=== PATIENT | male | born 1970 | race Caucasian/White ===

== ENCOUNTER 2016-12-14 06:47 | Inpatient (IN) | payer BC, OTHER ==
[~2016-12-14] VITALS: Ht 185.4 cm; Wt 85.2 kg
[~2016-12-14 06:47] MED LIST: PARO1TAB27 PO
[2016-12-14] MEDS ORDERED: DiphenhydrAMINE HCL 50 MG/ML VIAL IV STA (07:46)
[2016-12-14] MEDS ORDERED: FAMOTIDINE 20MG/102 ML D5W IV STA (07:46)
[2016-12-14] MEDS ORDERED: METHYLPREDNISOLONE 125 MG VIAL IV STA (07:46)
[2016-12-14 08:06] LABS: BASO % 0.1 %; BASO ABS # 0.01 K/uL (0-0.2); COMPLETE YES; EOS % 1.4 %; HEMATOCRIT 46.3 % (42-52); IG% 0.1 %; LYMPH % 17.6 %; LYMPH ABS # 1.68 K/uL (1.2-3.4); MEAN CELL VOLUME 87.7 fL (80-100); MEAN CORPUSCULAR HEMOGLOBIN 29.4 pg (25-34); MEAN CORPUSCULAR HGB CONC 33.5 g/dl (32-36); MONO % 3.2 %; NEUT % 77.6 %; PLATELET COUNT 145 K/uL (130-400); RED BLOOD COUNT 5.28 M/uL (4.7-6.1); WHITE BLOOD COUNT 9.54 K/uL (4.8-10.8)
[2016-12-14 08:35] LABS: BUN/CREATININE RATIO 13.6 (10-20); CREATININE 1.1 mg/dl (0.60-1.40); POTASSIUM 3.1 mmol/L (3.5-5.1)
[2016-12-14 08:36] LABS: URINE APPEARANCE CLEAR (CLEAR); URINE BILIRUBIN NEG (NEG); URINE COLOR YELLOW; URINE NITRITE NEG (NEG); URINE SPECIFIC GRAVITY 1.014 (1.000-1.030); UROBILINOGEN NEG (NEG)
[2016-12-14 08:40] LABS: CALCIUM 8.1 mg/dl (8.5-10.1)
[2016-12-14 08:42] LABS: MANUAL MICROSCOPIC REQUIRED? NO; REVIEW REQ? YES
[2016-12-14 08:46] LABS: THYROID STIMULATING HORMONE 7.13 uIu/ml (0.300-4.500)
--- NOTE | 2016-12-14 08:54 | DIAGNOSTIC IMAGING REPORT ---
CHEST ONE VIEW PORTABLE HISTORY: hypoxia COMPARISON: Chest 08/07/2009. Chest CT 02/05/2016. FINDINGS: Emphysema. No pleural effusions. No pneumothorax. The heart is normal in size. Mild diffuse interstitial thickening which is slightly progressed. Small scarlike density within the right medial lung base. IMPRESSION: 1. Emphysema. 2. Mild diffuse interstitial thickening which has slightly progressed but favors chronic change. No new focal lung consolidations. Electronically signed by: Sae Stratton M.D. 12/14/2016 8:53 AM Dictated Date/Time: 12/14/2016 8:51 AM
[2016-12-14 08:58] LABS: URINE PATH CASTS 0-3 GRANULAR CASTS /lpf (0)
[2016-12-14 09:04] LABS: BENZODIAZEPINE, URINE NEG (NEG); COCAINE,URINE NEG (NEG); PHENCYCLIDINE, URINE NEG (NEG)
[2016-12-14] MEDS ORDERED: NITROGLYCERIN 0.4 MG SL PER TAB CHARGE SL PRN (09:45)
[2016-12-14] MEDS ORDERED: ONDANSETRON INJ 2 MG/ML 2 ML VIAL IV PRN (09:45)
[2016-12-14] MEDS ORDERED: DiphenhydrAMINE HCL 50 MG/ML VIAL IV PRN (09:45)
[2016-12-14] MEDS ORDERED: ACETAMINOPHEN 325 MG TAB PO PRN (09:45)
[2016-12-14] MEDS ORDERED: BUPR100T5 PO (09:59)
[2016-12-14] MEDS ORDERED: LORA-741 PO (09:59)
--- NOTE | 2016-12-14 10:34 | EMERGENCY ROOM VISIT NOTE ---
History Report prepared by Jerad: Farzana Anderson Under the Supervision of: Dr. Estelita Khanna D.O. First contact with patient: 07:03 Chief Complaint: ALLERGIC REACTION Stated Complaint: ALLERGIC REACTION Nursing Triage Summary: Patient arrived by ambulance ALS after his mother found him diaphoretic, confused and tachycardic. Patient had one litter of fluid en route to ED, oxygen saturation on room air in ED 88% 4 liters of oxygen applied to patient. Patient also recieved .2 of narcan prior to arrival and had responded to tat per medic. Patient has history of WPW and states he has not been sleeping and is stressed states he is having relationship issues. History of Present Illness The patient is a 46 year old male who presents to the Emergency Room with complaints of an episode of allergic reaction starting this morning. He was brought to the ED by ALS. His mother found him diaphoretic, confused, and tachycardic. He was found hypoxic and hypotensive. He was given Narcan which EMS reports he did respond to. He received 1 L of fluid en route. The patient reports that he came home from work around 0530 and took one of his mother's Seroquel. He started itching on his palms and his mouth and throat felt dry. He had a prescription for Seroquel before and never experienced any allergic reactions. He denies eating any new foods or medications. He had a cup of coffee this morning which is not unusual for him. He also had a Red Bull and 2 "Pain Away" which contain acetaminophen. He was having pain in his back and arms from work. He denies any opioid use. He has a history of WPW. Source of History: patient, family Onset: this morning Position: other (global) Quality: other (allergic reaction) Timing: other (episodic) Associated Symptoms: + diaphoresis Note: Pt has confusion, itching on his palms, dry mouth and throat. Review of Systems See HPI for pertinent positives & negatives. A total of 10 systems reviewed and were otherwise negative. Past Medical & Surgical Medical Problems: (1) Anxiety (2) corneal implants (3) Depression Family History Cancer Heart disease Hypertension Seizures Social History Smoking Status: Current Every Day Smoker Alcohol Use: none Marital Status: in relationship Housing Status: lives with family Occupation Status: employed Current/Historical Medications Scheduled Bupropion Hcl (Wellbutrin Sr), 100 MG PO BID Scheduled PRN Lorazepam (Ativan), 0.5 MG PO DAILY PRN for Insomnia Allergies Coded Allergies: Erythromycin (Unverified Allergy, Severe, HIVES, FEVER, ITCHY, 02/05/16) Physical Exam Vital Signs Date Time Temp Pulse Resp B/P Pulse Ox O2 Delivery O2 Flow Rate FiO2 12/14/16 09:23 81 16 127/73 98 Venturi Mask 2.0 12/14/16 08:00 72 18 118/74 100 Nasal Cannula 2.0 12/14/16 07:07 88 Room Air 12/14/16 07:07 36.9 73 20 83/46 92 Nasal Cannula 4.0 12/14/16 06:55 86 Physical Exam HEENT: Head - normocephalic and atraumatic Pupils are equal, round, and reactive to light. Extraocular eye muscles are intact, and sclera are anicteric. There is moderate scleral injection Nose - moist nasal mucosa without discharge. Mouth - Uvular edema, right lower lip swelling, perioral sparing/palor. Neck: Supple; no JVD, nuchal rigidity, cervical lymphadenopathy, or auscultated bruits. Heart: Regular rate and rhythm. There is a normal S1 and S2 with no murmurs, clicks, or gallops appreciated. Lungs: Clear to auscultation bilaterally with no wheezes, rales, or rhonchi. Abdomen: Soft, completely nontender, nondistended, with good bowel sounds. There are no palpable pulsatile masses or hepatosplenomegaly. There is no guarding, rigidity, or rebound noted. Extremities: No evidence of cyanosis, clubbing, or edema. There are easily palpable peripheral pulses. Skin: Erythematous, diaphoretic Medical Decision & Procedures ER Provider Diagnostic Interpretation: X-ray results as stated below per interpretation by me and the radiologist: CHEST ONE VIEW PORTABLE HISTORY: hypoxia COMPARISON: Chest 08/07/2009. Chest CT 02/05/2016. FINDINGS: Emphysema. No pleural effusions. No pneumothorax. The heart is normal in size. Mild diffuse interstitial thickening which is slightly progressed. Small scarlike density within the right medial lung base. IMPRESSION: 1. Emphysema. 2. Mild diffuse interstitial thickening which has slightly progressed but favors chronic change. No new focal lung consolidations. Electronically signed by: Sae Stratton M.D. 12/14/2016 8:53 AM Dictated Date/Time: 12/14/2016 8:51 AM Laboratory Results Test 12/14/16 07:25 12/14/16 08:10 Immature Granulocyte % (Auto) 0.1 % White Blood Count 9.54 K/uL (4.8-10.8) Red Blood Count 5.28 M/uL (4.7-6.1) Hemoglobin 15.5 g/dL (14.0-18.0) Hematocrit 46.3 % (42-52) Mean Corpuscular Volume 87.7 fL (80-100) Mean Corpuscular Hemoglobin 29.4 pg (25-34) Mean Corpuscular Hemoglobin Concent 33.5 g/dl (32-36) Platelet Count 145 K/uL (130-400) Mean Platelet Volume 10.0 fL (7.4-10.4) Neutrophils (%) (Auto) 77.6 % Lymphocytes (%) (Auto) 17.6 % Monocytes (%) (Auto) 3.2 % Eosinophils (%) (Auto) 1.4 % Basophils (%) (Auto) 0.1 % Neutrophils # (Auto) 7.40 K/uL (1.4-6.5) Lymphocytes # (Auto) 1.68 K/uL (1.2-3.4) Monocytes # (Auto) 0.31 K/uL (0.11-0.59) Eosinophils # (Auto) 0.13 K/uL (0-0.5) Basophils # (Auto) 0.01 K/uL (0-0.2) Immature Granulocyte # (Auto) 0.01 K/uL (0.00-0.02) Total Bilirubin 0.5 mg/dl (0.2-1) Direct Bilirubin 0.1 mg/dl (0-0.2) Aspartate Amino Transf (AST/SGOT) 14 U/L (15-37) Alanine Aminotransferase (ALT/SGPT) 24 U/L (12-78) Alkaline Phosphatase 76 U/L (45-117) Total Protein 5.7 gm/dl (6.4-8.2) Albumin 3.1 gm/dl (3.4-5.0) Thyroid Stimulating Hormone (TSH) 7.130 uIu/ml (0.300-4.500) Salicylates Level 3.1 mg/dl (2.8-20) Acetaminophen Level 4 ug/ml (10-30) Ethyl Alcohol mg/dL < 3.0 mg/dl (0-3) Urine Color YELLOW Urine Appearance CLEAR (CLEAR) Urine pH 7.0 (4.5-7.5) Urine Specific [place] 1.014 (1.000-1.030) Urine Protein 1+ (NEG) Urine Glucose (UA) TRACE (NEG) Urine Ketones NEG (NEG) Urine Occult Blood TRACE (NEG) Urine Nitrite NEG (NEG) Urine Bilirubin NEG (NEG) Urine Urobilinogen NEG (NEG) Urine Leukocyte Esterase NEG (NEG) Urine WBC (Auto) 5-10 /hpf (0-5) Urine RBC (Auto) 0-4 /hpf (0-4) Urine Hyaline Casts (Auto) 1-5 /lpf (0-5) Urine Epithelial Cells (Auto) 10-20 /lpf (0-5) Urine Bacteria (Auto) NEG (NEG) Urine Renal Epithelial Cells /lpf (0-5) Urine Pathogenic Casts 0-3 GRANULAR CASTS /lpf (0) Urine Opiates Screen NEG (NEG) Urine Methadone, Qualitative NEG (NEG) Urine Barbiturates NEG (NEG) Urine Phencyclidine (PCP) Level NEG (NEG) Ur Amphetamine/Methamphetamine NEG (NEG) MDMA (Ecstasy) Screen NEG (NEG) Urine Benzodiazepines Screen NEG (NEG) Urine Cocaine Metabolite NEG (NEG) Urine Marijuana (THC) NEG (NEG) Laboratory results per my review. Medications Administered Medications (Trade) Dose Ordered Sig/Andrez Route Start Time Stop Time Status Last Admin Dose Admin Methylprednisolone Sodium Succinate (Solu-Medrol IV) 125 mg NOW STAT IV 12/14/16 07:46 12/14/16 07:47 DC 12/14/16 07:57 125 MG Diphenhydramine HCl (Benadryl Inj) 25 mg NOW STAT IV 12/14/16 07:46 12/14/16 07:47 DC 12/14/16 07:57 25 MG Famotidine 20 mg 20 mg ONE STAT IV 12/14/16 07:46 12/14/16 07:47 DC 12/14/16 08:03 20 MG Sodium Chloride (Nss 1000ml) 1,000 ml @ 75 mls/hr [id number] IV 12/14/16 09:43 01/13/17 09:42 12/14/16 22:26 75 MLS/HR Procedure Medications: Famotidine 20 mg IV, Benadryl Inj 25 mg IV, Solu-Medrol IV 125 mg IV. ECG Indication: altered mental status Rate (beats per minute): 85 Rhythm: normal sinus Findings: no acute ischemic change, no ectopy, other (WPW) ED Course 0722: The patient was evaluated in room B12. A complete history and physical examination were performed. Nursing notes and previous electronic medical records were reviewed. labs were drawn as above. 0745: I spoke with the pharmacist regarding medication choices in light of the patient's WPW. 0746: Famotidine 20 mg IV, Benadryl Inj 25 mg IV, Solu-Medrol IV 125 mg IV. 0850: The patient was feeling much more comfortable at this time. I reviewed some of the results with him. 0922: Upon reevaluation, I discussed findings and results with him and his family. They verbalized agreement of the treatment plan. I spoke with Anita Baptiste PA-C of the [facility]. The patient will be evaluated for further management and care. 0940: I reevaluated the patient. He is asleep. He is hemodynamically stable. Medical Decision The patient is a 46 year old male who presents to the ED with an episode of hypoxia and hypotension. Differential diagnosis includes drug overdose, medication side effect, anaphylaxis, allergic reaction. Lab results show: WBC 9.5, stable H&H, potassium 3.1, normal renal function, glucose 148, LFTs are normal, calcium slightly low at 8.1, TSH 7.1. Urine has trace blood, 5-10 WBC, 10-20 epithelial cells. Salicylate level 3.1, Tylenol 4, alcohol less than 3, negative urine tox. It seems that the patient has been having some relationship issues and was having difficulty sleeping. He took one of his mother's Seroquel immediately began to have itching to his office and redness to his skin. He has taken Seroquel before with no problems. When EMS arrived on scene, the patient's O2 saturation was in the 70s, he appeared short of breath, and he was significantly hypotensive. I feel the patient is suffering from acute anaphylactic shock as he has significant erythema about his body, perioral pallor, edema to his lower lip, and uvular paola He was aggressively treated for arrival here in the emergency department with continued IV fluid resuscitation and meds. He will be evaluated for further management by the [facility]. Incidentally, the patient was noted to be slightly hypokalemic and hypothyroid. Consults Time Called: 912 Consulting Physician[facility] Return[facility] Call: [phone] Discussed the patient's case. The patient will be evaluated for further management. Impression Primary Impression: Anaphylactic shock Additional Impressions: Hypokalemia Hypothyroidism Critical Care I have personally spent greater than 30 minutes of critical care time in the direct management of this patient. This includes bedside care, interpretation of diagnostic studies, and testing, discussion with consultants, patient, and family members, and other required patient management activities. This 30 minutes is in excess of all separately billable procedures. Scribe Attestation The scribe's documentation has been prepared under my direction and personally reviewed by me in its entirety. I confirm that the note above accurately reflects all work, treatment, procedures, and medical decision making performed by me. Departure Information Dispostion Being Evaluated By Hospitalist Referrals La Brito D.O. (PCP) Patient Instructions My [facility] Problem Qualifiers
[2016-12-14 10:50] VITALS: BP 102/70; PULSE 84; TEMP 36; O2SAT 96
[2016-12-14 11:21] VITALS: Ht 185.4 cm; Wt 85.2 kg
[2016-12-14] MEDS ORDERED: POTASSIUM CHLORIDE 20 MEQ TABCR PO STA (11:47)
--- NOTE | 2016-12-14 12:01 | History and Physical ---
History & Physical Date & Time of Service: Dec 14, 2016 at 11:30 Chief Complaint: Allergic Reaction Primary Care Physician: La Brito D.O. 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 History is obtained from patient and previous documentation. 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 He has been having more trouble sleeping recently due to stressors from a strained relationship so he took 1 of his mothers Seroquel to help him sleep around 0530. Shortly after he took the Seroquel he developed itchiness to the bottoms of his feet along with throat swelling and dry mouth. Pts mother found him appearing diaphoretic and confused and EMS was called. When EMS arrived, pt was hypoxic in the 70s on room air and BP was 60s/40s. Pt was given O2, fluids and Narcan which seemed to improve his condition per EMS. Pt has been prescribed Seroquel in the past with no issues. He denies taking any other substances other than a red bull and 2 Tylenol around midnight. Pt denies fever/ chills, chest pain, wheezing, abd pain, N/V, bowel or bladder issues, LE edema , calf pain, lightheadedness/dizziness. In the ED, pt was hypoxic and hypotensive on arrival. He is afebrile with no leukocytosis. K+ 3.1. Tox screen negative. UA negative. CXR no acute changes. Pt received Solu-Medrol, Benadryl and Pepcid in the ED. Patient is currently saturating well on room air. He remains lethargic and will be admitted for further evaluation and treatment. Past Medical/Surgical History Medical Problems: (1) Anxiety Status: Chronic (2) corneal implants Status: Resolved (3) Depression Status: Chronic Family History Cancer Heart disease Hypertension Seizures Social History Smoking Status: Current Every Day Smoker (1 ppd x 25 years) Drug Use: none Marital Status: in relationship Occupational Status: employed Allergies Coded Allergies: Erythromycin (Unverified Allergy, Severe, HIVES, FEVER, ITCHY, 02/05/16) Quetiapine (Verified Allergy, Severe, ANAPHYLAXIS, 12/15/16) HYPOXIA Home Medications Scheduled Cetirizine Hcl (Zyrtec), 1 TAB PO DAILY Methylprednisolone (Medrol Dosepak), 1 PKT PO UD Ranitidine HCl (Ranitidine HCl), 150 MG PO BID Review of Systems Constitutional: + fatigue, + sweats, No chills, No fever, No weakness Eyes: No worsening of vision ENT: + problem reported (throat swelling), No hearing loss Respiratory: No cough, No shortness of breath Cardiovascular: No chest pain, No claudication, No edema Abdomen: No constipation, No diarrhea, No nausea, No pain, No vomiting Musculoskeletal: No calf pain, No swelling Genitourinary - Male: No dysuria Neurologic: No weakness Psychiatric: No depression symptoms Endocrine: + fatigue Hematologic / Lymphatic: No abnormal bleeding/bruising Integumentary: + color change (diffuse flushing) Physical Exam Vital Signs Date Time Temp Pulse Resp B/P Pulse Ox O2 Delivery O2 Flow Rate FiO2 12/14/16 10:50 36.0 84 18 102/70 96 Room Air 12/14/16 10:21 75 16 110/77 94 Room Air 12/14/16 10:04 76 12/14/16 09:23 81 16 127/73 98 Venturi Mask 2.0 12/14/16 08:00 72 18 118/74 100 Nasal Cannula 2.0 12/14/16 07:07 88 Room Air 12/14/16 07:07 36.9 73 20 83/46 92 Nasal Cannula 4.0 12/14/16 06:55 86 General Appearance: WD/WN, no apparent distress, + pertinent finding (Pt is laying in bed with no family at bedside) Head: normocephalic, atraumatic Eyes: normal inspection, PERRL ENT: hearing grossly normal, + muffled/hoarse voice, + pertinent finding ( uvular edema; patent airway) Neck: supple Respiratory/Chest: chest non-tender, lungs clear, normal breath sounds, no respiratory distress Cardiovascular: regular rate, rhythm, no edema, no murmur Abdomen/GI: normal bowel sounds, non tender, soft Back: normal inspection Extremities/Musculoskelatal: normal inspection, no calf tenderness, no pedal edema Neurologic/Psych: alert (lethargic), normal mood/affect, oriented x 3, + pertinent finding (slurred speech) Skin: warm/dry, no rash Diagnostics Laboratory Results Results Past 24 Hours Test 12/14/16 07:25 12/14/16 08:10 Range/Units White Blood Count 9.54 4.8-10.8 K/uL Red Blood Count 5.28 4.7-6.1 M/uL Hemoglobin 15.5 14.0-18.0 g/dL Hematocrit 46.3 42-52 % Mean Corpuscular Volume 87.7 80-100 fL Mean Corpuscular Hemoglobin 29.4 25-34 pg Mean Corpuscular Hemoglobin Concent 33.5 32-36 g/dl Platelet Count 145 130-400 K/uL Mean Platelet Volume 10.0 7.4-10.4 fL Neutrophils (%) (Auto) 77.6 % Lymphocytes (%) (Auto) 17.6 % Monocytes (%) (Auto) 3.2 % Eosinophils (%) (Auto) 1.4 % Basophils (%) (Auto) 0.1 % Neutrophils # (Auto) 7.40 1.4-6.5 K/uL Lymphocytes # (Auto) 1.68 1.2-3.4 K/uL Monocytes # (Auto) 0.31 0.11-0.59 K/uL Eosinophils # (Auto) 0.13 0-0.5 K/uL Basophils # (Auto) 0.01 0-0.2 K/uL RDW Standard Deviation 44.6 36.4-46.3 fL RDW Coefficient of Variation 13.8 11.5-14.5 % Immature Granulocyte % (Auto) 0.1 % Immature Granulocyte # (Auto) 0.01 0.00-0.02 K/uL Sodium Level 141 136-145 mmol/L Potassium Level 3.1 3.5-5.1 mmol/L Chloride Level 107 98-107 mmol/L Carbon Dioxide Level 26 21-32 mmol/L Anion Gap 8.0 3-11 mmol/L Blood Urea Nitrogen 15 7-18 mg/dl Creatinine 1.10 0.60-1.40 mg/dl Est Creatinine Clear Calc Drug Dose 95.8 ml/min Estimated GFR () 93.5 Estimated GFR (Non- 80.6 BUN/Creatinine Ratio 13.6 10-20 Random Glucose 148 70-99 mg/dl Calcium Level 8.1 8.5-10.1 mg/dl Total Bilirubin 0.5 0.2-1 mg/dl Direct Bilirubin 0.1 0-0.2 mg/dl Aspartate Amino Transf (AST/SGOT) 14 15-37 U/L Alanine Aminotransferase (ALT/SGPT) 24 12-78 U/L Alkaline Phosphatase 76 45-117 U/L Total Protein 5.7 6.4-8.2 gm/dl Albumin 3.1 3.4-5.0 gm/dl Thyroid Stimulating Hormone (TSH) 7.130 0.300-4.500 uIu/ml Salicylates Level 3.1 2.8-20 mg/dl Acetaminophen Level 4 10-30 ug/ml Ethyl Alcohol mg/dL < 3.0 0-3 mg/dl Urine Color YELLOW Urine Appearance CLEAR CLEAR Urine pH 7.0 4.5-7.5 Urine Specific [place] 1.014 1.000-1.030 Urine Protein 1+ NEG Urine Glucose (UA) TRACE NEG Urine Ketones NEG NEG Urine Occult Blood TRACE NEG Urine Nitrite NEG NEG Urine Bilirubin NEG NEG Urine Urobilinogen NEG NEG Urine Leukocyte Esterase NEG NEG Urine WBC (Auto) 5-10 0-5 /hpf Urine RBC (Auto) 0-4 0-4 /hpf Urine Hyaline Casts (Auto) 1-5 0-5 /lpf Urine Epithelial Cells (Auto) 10-20 0-5 /lpf Urine Bacteria (Auto) NEG NEG Urine Renal Epithelial Cells 0-5 /lpf Urine Pathogenic Casts 0-3 GRANULAR CASTS 0 /lpf Urine Opiates Screen NEG NEG Urine Methadone, Qualitative NEG NEG Urine Barbiturates NEG NEG Urine Phencyclidine (PCP) Level NEG NEG Ur Amphetamine/Methamphetamine NEG NEG MDMA (Ecstasy) Screen NEG NEG Urine Benzodiazepines Screen NEG NEG Urine Cocaine Metabolite NEG NEG Urine Marijuana (THC) NEG NEG Diagnostic Radiology CXR IMPRESSION: 1. Emphysema. 2. Mild diffuse interstitial thickening which has slightly progressed but favors chronic change. No new focal lung consolidations EKG EKG: NSR at 85 bpm with WPW; WPW new when compared to EKG from 02/05/16 Impression Assessment and Plan ANAPHYLACTIC SHOCK pt presented with diaphoresis, throat swelling and itchy feet after taking Seroquel this morning -admit to telemetry -pt appears to be suffering from allergic reaction; offending agent is unclear as sxs began shortly after ingesting Seroquel however patient has been on Seroquel in the past with no issues; patient denies taking any other substances -pt was hypoxic and hypotensive on arrival; now saturating well on room air and BP improving -CXR no acute changes -Tox screen negative -start Benadryl and Solu-Medrol -hold Wellbutrin for now -monitor closely on tele HYPOKALEMIA -K+ 3.1; replete -monitor with daily prp H/O WPW -EKG: NSR with WPW DEPRESSION/ANXIETY -increased stressors recently due to strained relationship -hold Wellbutrin and Ativan for now -monitor DVT PROPHYLAXIS -Low VTE risk -SCDs and ambulation DISPO Pt seen in collaboration with Dr. Burleson. Please see his addendum for further details. Thanks! Agree with above h and P. 46m who took his mother Seroquel to sleep comes with diaphoresis, throat swelling and hypoxia. Currently stable after tx in ER. currently no tounge swelling. No chest pain. Afebrile. No sob. hemodynamics stable.Sys he took Seroquel before but didn't had any problem. 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 VTE Prophylaxis VTE Risk Assessment Done? Y/N: Yes Risk Level: Moderate
[2016-12-14] MEDS: SODIUM CHLORIDE 0.9% 1000ML 1,000 ML IV SCH ×2 (12:37→22:26)
[2016-12-14] MEDS: METHYLPREDNISOLONE IV 40 MG in SYRINGE 0 ML IV SCH ×2 (13:20→22:23)
[2016-12-14 15:22] VITALS: BP 114/73; PULSE 70; TEMP 37; O2SAT 96
[2016-12-14 20:12] VITALS: BP 121/70; PULSE 92; TEMP 36.4; O2SAT 95
[2016-12-14] MEDS: RANITIDINE HCL 150 MG TAB PO SCH (20:41)
[2016-12-15] VITALS (8 sets, daily range): BP systolic 130–170; BP diastolic 72–91; PULSE 67–92; TEMP 36.3–36.6; O2SAT 95–96
[2016-12-15] MEDS: METHYLPREDNISOLONE IV 40 MG in SYRINGE 0 ML IV SCH (06:10)
[2016-12-15] MEDS: RANITIDINE HCL 150 MG TAB PO SCH (07:43)
[2016-12-15 07:55] LABS: HEMATOCRIT 45.4 % (42-52); MEAN CELL VOLUME 88.5 fL (80-100); MEAN CORPUSCULAR HGB CONC 32.8 g/dl (32-36); MEAN PLATELET VOLUME 10.3 fL (7.4-10.4); PLATELET COUNT 182 K/uL (130-400); RED BLOOD COUNT 5.13 M/uL (4.7-6.1); WHITE BLOOD COUNT 17.78 K/uL (4.8-10.8)
[2016-12-15 08:41] LABS: BUN/CREATININE RATIO 17.2 (10-20); CREATININE 0.81 mg/dl (0.60-1.40); POTASSIUM 4.1 mmol/L (3.5-5.1)
[2016-12-15 08:57] LABS: CALCIUM 9.3 mg/dl (8.5-10.1)
--- NOTE | 2016-12-15 13:38 | CARDIOLOGY CONSULTATION ---
DATE OF CONSULTATION: 12/15/2016 REFERRING PHYSICIAN: Graeme Burleson MD REASON FOR CONSULTATION: Bossk-Glegcnwkz-Patqb. HISTORY OF PRESENT ILLNESS: The patient is a 46-year-old male who periodically takes his mother's Seroquel to help him sleep. Last night, he decided to take a dose and he claims that in the past, it has never caused the problem, but last night, he had a severe allergic reaction and was came in to the Emergency Department, where he required treatment. After admission, his EKG revealed Hsbmb-Rhfceakku-Ugcik. The patient states that he was first diagnosed with Daswd-Scdadxjxp-Asumc at age 19 by a local big data hadoop developer, who had since moved on. He has had no additional cardiology followup for his WPW. I do see that in our records from [facility], his primary care physician in 2010 ordered an echocardiogram and Holter, which I believe that the patient did not follow through with. He states that he has occasional tachycardia and heart palpitations. He usually does a Valsalva maneuver and it will break. Sometimes, he states that he will have it for approximately 10 or 15 minutes and after the arrhythmia breaks, he feels washed out for several hours. He has no other cardiac history. ALLERGIES: ERYTHROMYCIN. PAST MEDICAL HISTORY: Fairly unremarkable. He has a history of Mofzm-Gakwbghfe-Vwdrt and no other heart disease. He has no history of diabetes, hypertension, hypercholesterolemia, strokes or kidney disease. SOCIAL HISTORY: The patient is a cigarette smoker. FAMILY MEDICAL HISTORY: Noncontributory. REVIEW OF SYSTEMS: A 10-point review of systems is negative except for the history of chief complaint. PHYSICAL EXAMINATION: GENERAL: He is alert and oriented, in no acute distress. VITAL SIGNS: Blood pressure is 150/80 and pulse is regular at 67. He is afebrile. HEENT: He is normocephalic. Pupils are equal and reactive to light. Extraocular muscles are intact bilaterally. NECK: The neck veins are flat. Carotids have good upstrokes bilaterally without bruits. Thyroid is nonpalpable. RESPIRATORY: Breath sounds equal bilaterally and clear to auscultation. CARDIOVASCULAR: Heart has a regular rhythm. Normal S1 and S2. No S3 or S4. No cardiac rubs or murmurs. GASTROINTESTINAL: Abdomen is soft and nontender without organomegaly. EXTREMITIES: Free of edema, digit clubbing, or cyanosis. NEUROLOGIC: Grossly intact. SKIN: Warm to touch. LYMPH NODES: Negative to palpation. LABORATORY DATA: Cardiac troponin's are borderline elevated. Potassium is 4.1 and creatinine 0.81. Hemoglobin is 14.9 and WBC count is 17.78, which is elevated due to steroids. EKG is sinus rhythm with Zxqmi-Tdnkebkic-Gafig. IMPRESSION: 1. Allergic reaction to medications. 2. Self medicating. 3. Uixgm-Qiltrumwp-Xtgvd. RECOMMENDATIONS: The patient has had a history of Fnyqq-Bttvgkjah-Fadxv since he was a teenager. He does have occasional tachycardia, which he breaks with Valsalva maneuver. I think it would be safe that he can be discharged from the hospital. 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 Hopefully, he will show for that appointment. DANNY
--- NOTE | 2016-12-15 13:46 | ECHOCARDIOGRAM REPORT ---
*NOTICE TO RECEIVING [employer]ENCY This information is strictly Confidential and protected under [place] law. [place] law prohibits you from making any further disclosure of this information unless further disclosure is expressly permitted by the written consent of the person to whom it pertains or is authorized by law. A general authorization for the release of medical or other information is not sufficient for this purpose. Hospital accepts no responsibility if the information is made available to any other person, INCLUDING THE PATIENT. Interpretation Summary * Name: PATT RAMAN Study Date: 12/15/2016 09:40 AM BP: 150/89 mmHg * Patient Location: [facility]\S\[id number]\S\1 HR: 77 * : 1970 (M/d/yyyy) Gender: Male Height: 73 in * Age: 46 yrs Ethnicity: CA Weight: 187 lb * Ordering Physician: Graeme Burleson * Performed By: Lesley Ibarra * * Reason For Study: EKG CHANGES * BSA: 2.1 m2 * -- Conclusions -- * The left ventricle is normal in size. * Left ventricular systolic function is normal. * Ejection Fraction = 65-70%. * The right ventricular systolic function is normal. * The left atrial size is normal. * Right atrial size is normal. * No significant valvular pathology. Procedure Details * A complete two-dimensional transthoracic echocardiogram was performed (2D, M-mode, Doppler and color flow Doppler). * Parasternal view images were techinally difficult to obtain do to patient lungs. Left Ventricle * The left ventricle is normal in size. * There is normal left ventricular wall thickness. * Ejection Fraction = 65-70%. * Left ventricular systolic function is normal. * The left ventricular wall motion is normal. Right Ventricle * The right ventricle is normal size. * The right ventricular systolic function is normal. Atria * The left atrial size is normal. * Right atrial size is normal. * The interatrial septum is intact with no evidence for an atrial septal defect. Mitral Valve * The mitral valve is normal in structure and function. Tricuspid Valve * The tricuspid valve is normal in structure and function. Aortic Valve * The aortic valve is normal in structure and function. Pulmonic Valve * The pulmonic valve is not well seen, but is grossly normal. * There is no significant pulmonary regurgitation. Great Vessels * The aortic root and proximal ascending aorta are normal sized. Pericardium/Pleural * There is no pericardial effusion. MMode 2D Measurements and Calculations IVSd 1.3 cm IVSs 2.0 cm LVIDd 4.2 cm LVIDs 2.5 cm LVPWd 1.3 cm LVPWs 1.7 cm IVS/LVPW 1.0 FS 39.6 % EDV(Teich) 77.2 ml ESV(Teich) 22.8 ml EF(Teich) 70.5 % EDV(cubed) 72.5 ml ESV(cubed) 16.0 ml EF(cubed) 77.9 % % IVS thick 50.8 % % LVPW thick 34.2 % LV mass(C)d 194.0 grams LV mass(C)dI 92.8 grams/m\S\2 LV mass(C)s 183.2 grams LV mass(C)sI 87.6 grams/m\S\2 SV(Teich) 54.4 ml SI(Teich) 26.0 ml/m\S\2 SV(cubed) 56.5 ml SI(cubed) 27.0 ml/m\S\2 ACS 1.9 cm LA dimension 5.0 cm LVOT diam 2.2 cm LVOT area 3.8 cm\S\2 LVAd ap4 45.2 cm\S\2 LVLd ap4 9.6 cm EDV(MOD-sp4) 176.5 ml EDV(sp4-el) 180.6 ml LVAs ap4 21.4 cm\S\2 LVLs ap4 7.5 cm ESV(MOD-sp4) 54.4 ml ESV(sp4-el) 51.7 ml EF(MOD-sp4) 69.2 % EF(sp4-el) 71.4 % LVAd ap2 37.6 cm\S\2 LVLd ap2 9.6 cm EDV(MOD-sp2) 122.4 ml EDV(sp2-el) 125.4 ml LVAs ap2 17.1 cm\S\2 LVLs ap2 6.5 cm ESV(MOD-sp2) 37.4 ml ESV(sp2-el) 38.1 ml EF(MOD-sp2) 69.5 % EF(sp2-el) 69.6 % LVLd %diff -0.57 % EDV(MOD-bp) 146.8 ml LVLs %diff -15.91 % ESV(MOD-bp) 47.6 ml EF(MOD-bp) 67.6 % SV(MOD-sp4) 122.0 ml SI(MOD-sp4) 58.4 ml/m\S\2 SV(MOD-sp2) 85.0 ml SI(MOD-sp2) 40.7 ml/m\S\2 SV(MOD-bp) 99.2 ml SI(MOD-bp) 47.4 ml/m\S\2 SV(sp4-el) 128.9 ml SI(sp4-el) 61.6 ml/m\S\2 SV(sp2-el) 87.3 ml SI(sp2-el) 41.7 ml/m\S\2 Doppler Measurements and Calculations MV E max basim 102.3 cm/sec MV A max basim 84.8 cm/sec MV E/A 1.2 MV dec time 0.22 sec Ao V2 max 175.4 cm/sec Ao max PG 12.3 mmHg Ao max PG (full) 8.9 mmHg JAVIER(V,A) 2.0 cm\S\2 JAVIER(V,D) 2.0 cm\S\2 LV V1 max PG 3.4 mmHg LV V1 max 92.6 cm/sec PA V2 max 67.9 cm/sec PA max PG 1.8 mmHg
[2016-12-15] MEDS ORDERED: CETI10TA10 PO (14:26)
[2016-12-15] MEDS ORDERED: METH4PAK PO (14:26)
[2016-12-15] MEDS ORDERED: ZNT150 PO (14:26)
--- NOTE | 2016-12-15 14:28 | Discharge Instructions ---
Discharge Instructions Date of Service Dec 15, 2016. Admission Reason for Admission: Anaphylaxis Discharge Discharge Diagnosis / Problem: allergic reaction severe Discharge Goals Goal(s): Decrease discomfort, Improve function Activity Recommendations Activity Limitations: resume your previous activity . Instructions / Follow-Up Instructions / Follow-Up FOLLOWUP WITH FAMILY DOCTOR ON AT 11:15AM FOLLOWUP WITH CARDIOLOGY SCHEDULED. ALLERGY/IMMUNOLOGY REFERRAL PER FAMILY DOCTOR. NOT TO TAKE SEROQUEL. Current Hospital Diet Patient's current hospital diet: Regular Diet Discharge Diet Recommended Diet: AHA Diet (Heart Healthy) Pending Studies Studies pending at discharge: no Medical Emergencies . Who to Call and When: Medical Emergencies: If at any time you feel your situation is an emergency, please call 911 immediately. . Non-Emergent Contact Non-Emergency issues call your: Primary Care Provider . . "Provider Documentation" section prepared by Graeme Burleson. . VTE Core Measure Inpt VTE Proph given/why not?: SCD's
--- NOTE | 2016-12-15 19:16 | Discharge Summary ---
Discharge Summary Date of Service Dec 15, 2016. Discharge Summary Admission Date: Dec 14, 2016 at 09:51 Discharge Date: Dec 15, 2016 Discharge Disposition: Home Principal Diagnosis: SEVERE ALLERGIC REACTION Secondary Diagnoses/Problems: (1) Anxiety Status: Chronic (2) corneal implants Status: Resolved (3) Depression Status: Chronic Procedures: echo: The left ventricle is normal in size. * Left ventricular systolic function is normal. * Ejection Fraction = 65-70%. * The right ventricular systolic function is normal. * The left atrial size is normal. * Right atrial size is normal. * No significant valvular pathology. 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 History is obtained from patient and previous documentation. 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 He has been having more trouble sleeping recently due to stressors from a strained relationship so he took 1 of his mothers Seroquel to help him sleep around 0530. Shortly after he took the Seroquel he developed itchiness to the bottoms of his feet along with throat swelling and dry mouth. Pts mother found him appearing diaphoretic and confused and EMS was called. When EMS arrived, pt was hypoxic in the 70s on room air and BP was 60s/40s. Pt was given O2, fluids and Narcan which seemed to improve his condition per EMS. Pt has been prescribed Seroquel in the past with no issues. He denies taking any other substances other than a red bull and 2 Tylenol around midnight. Pt denies fever/ chills, chest pain, wheezing, abd pain, N/V, bowel or bladder issues, LE edema , calf pain, lightheadedness/dizziness. In the ED, pt was hypoxic and hypotensive on arrival. He is afebrile with no leukocytosis. K+ 3.1. Tox screen negative. UA negative. CXR no acute changes. Pt received Solu-Medrol, Benadryl and Pepcid in the ED. Patient is currently saturating well on room air. He remains lethargic and will be admitted for further evaluation and treatment. Physical Exam (per Admitting): General Appearance: WD/WN, no apparent distress, + pertinent finding (Pt is laying in bed with no family at bedside) Head: normocephalic, atraumatic Eyes: normal inspection, PERRL ENT: hearing grossly normal, + muffled/hoarse voice, + pertinent finding ( uvular edema; patent airway) Neck: supple Respiratory/Chest: chest non-tender, lungs clear, normal breath sounds, no respiratory distress Cardiovascular: regular rate, rhythm, no edema, no murmur Abdomen/GI: normal bowel sounds, non tender, soft Back: normal inspection Extremities/Musculoskelatal: normal inspection, no calf tenderness, no pedal edema Neurologic/Psych: alert (lethargic), normal mood/affect, oriented x 3, + pertinent finding (slurred speech) Skin: warm/dry, no rash Hospital Course ANAPHYLASIS SEVERE ALLERGIC REACTION pt presented with diaphoresis, throat swelling and itchy feet after taking Seroquel this morning his mothers medication to sleep WAS HYPOXIC improved with iv steroids, Benadryl and Zantac continuing same says had Seroquel before also on Wellbutrin but says he takes it only occasionally observed overnight and stable discharged on steroid taper, Zyrtec and Zantac f/u with pcp allergy/immunology referral as per PCP HYPOKALEMIA replaced H/O WPW also has non specific st changes in ekg mild elevation of troponin mostly from hypoxia which trended down no chest pain echo unremarkable seen by cardiology cardiology recommend out patient followup with EP. DEPRESSION/ANXIETY increased stressors recently due to strained relationship says not taking Wellbutrin regularly f/u with pcp Discharged home Total time spent on discharge = 35minutes This includes examination of the patient, discharge planning, medication reconciliation, and communication with other providers. Discharge Instructions Discharge Instructions Date of Service Dec 15, 2016. Admission Reason for Admission: Anaphylaxis Discharge Discharge Diagnosis / Problem: allergic reaction severe Discharge Goals Goal(s): Decrease discomfort, Improve function Activity Recommendations Activity Limitations: resume your previous activity . Instructions / Follow-Up Instructions / Follow-Up FOLLOWUP WITH FAMILY DOCTOR ON AT 11:15AM FOLLOWUP WITH CARDIOLOGY SCHEDULED. ALLERGY/IMMUNOLOGY REFERRAL PER FAMILY DOCTOR. NOT TO TAKE SEROQUEL. Current Hospital Diet Patient's current hospital diet: Regular Diet Discharge Diet Recommended Diet: AHA Diet (Heart Healthy) Pending Studies Studies pending at discharge: no Medical Emergencies . Who to Call and When: Medical Emergencies: If at any time you feel your situation is an emergency, please call 911 immediately. . Non-Emergent Contact Non-Emergency issues call your: Primary Care Provider . . "Provider Documentation" section prepared by Graeem Burleson. . VTE Core Measure Inpt VTE Proph given/why not?: SCD's
--- NOTE | 2016-12-15 19:26 | Progress Note ---
Internal Med Progress Note Date of Service: Dec 15, 2016. Provider Documentation: SUBJECTIVE: RESTING COMFORTABLY NO TOUNGE OR LIP SWELLING EATING FINE NO SOB NO CHEST PAIN WANTS TO GO HOME OBJECTIVE: Vital Signs-as noted below Exam: General-Alert and oriented ENT-normal hearing Neck-no neck masses Lungs-cta b/l no wheezing or crackles Heart-s1 and s2 heard regular rate and rhythm no murmurs Abdomen-soft bowel sounds present non tender no distension Extremities-no edema no erythema Neuro-Alert and oriented moves extremities Lab data as noted below. ASSESSMENT & PLAN: ANAPHYLASIS SEVERE ALLERGIC REACTION pt presented with diaphoresis, throat swelling and itchy feet after taking Seroquel this morning his mothers medication to sleep WAS HYPOXIC improved with iv steroids, Benadryl and Zantac continuing same says had Seroquel before also on Wellbutrin but says he takes it only occasionally observed overnight and stable discharged on steroid taper, Zyrtec and Zantac f/u with pcp allergy/immunology referral as per PCP HYPOKALEMIA replaced H/O WPW also has non specific st changes in ekg mild elevation of troponin mostly from hypoxia which trended down no chest pain echo unremarkable seen by cardiology cardiology recommend out patient followup with EP. DEPRESSION/ANXIETY increased stressors recently due to strained relationship says not taking Wellbutrin regularly f/u with pcp Discharged home Vital Signs: Date Time Temp Pulse Resp B/P Pulse Ox O2 Delivery O2 Flow Rate FiO2 12/15/16 13:59 36.5 67 20 95 Room Air 12/15/16 12:35 36.5 67 20 154/86 95 12/15/16 12:00 96 Room Air 12/15/16 09:43 36.6 84 20 170/91 96 Room Air 90 150/91 12/15/16 08:26 36.4 77 20 150/89 96 12/15/16 08:00 96 Room Air 12/15/16 04:54 36.6 92 20 137/72 95 Room Air 12/15/16 04:00 Room Air 12/15/16 00:16 36.3 80 20 130/78 95 Room Air 12/15/16 00:00 Room Air 12/14/16 20:12 36.4 92 20 121/70 95 Room Air 12/14/16 20:00 Room Air Lab Results: Results Past 24 Hours Test 12/14/16 20:08 4/29/17 07:45 Range/Units Troponin I 0.057 0.023 0-0.045 ng/ml White Blood Count 17.78 4.8-10.8 K/uL Red Blood Count 5.13 4.7-6.1 M/uL Hemoglobin 14.9 14.0-18.0 g/dL Hematocrit 45.4 42-52 % Mean Corpuscular Volume 88.5 80-100 fL Mean Corpuscular Hemoglobin 29.0 25-34 pg Mean Corpuscular Hemoglobin Concent 32.8 32-36 g/dl RDW Standard Deviation 45.8 36.4-46.3 fL RDW Coefficient of Variation 14.0 11.5-14.5 % Platelet Count 182 130-400 K/uL Mean Platelet Volume 10.3 7.4-10.4 fL Sodium Level 141 136-145 mmol/L Potassium Level 4.1 3.5-5.1 mmol/L Chloride Level 106 98-107 mmol/L Carbon Dioxide Level 28 21-32 mmol/L Anion Gap 7.0 3-11 mmol/L Blood Urea Nitrogen 14 7-18 mg/dl Creatinine 0.81 0.60-1.40 mg/dl Est Creatinine Clear Calc Drug Dose 130.1 ml/min Estimated GFR () 124.4 Estimated GFR (Non- 107.3 BUN/Creatinine Ratio 17.2 10-20 Random Glucose 108 70-99 mg/dl Calcium Level 9.3 8.5-10.1 mg/dl
== END 2016-12-15 15:05 | disposition home or self-care (01) | DRG 916 ==
LOC: ENRESERVDT → ENRESERVTM → EDBD 06:47 → C.EDB 06:48 → C.MED 09:51
PROVIDERS: ADMIT Internal Medicine; ATTEND Internal Medicine
DX: T78.2XXA Anaphylactic shock, unspecified, initial encounter (principal); T43.595A Adverse effect of other antipsychotics and neuroleptics, initial encounter; E87.6 Hypokalemia; I45.6 Pre-excitation syndrome; F32.9 Major depressive disorder, single episode, unspecified; F41.9 Anxiety disorder, unspecified; Z91.14 Patient's other noncompliance with medication regimen; F17.210 Nicotine dependence, cigarettes, uncomplicated; Z88.1 Allergy status to other antibiotic agents; Z82.49 Family history of ischemic heart disease and other diseases of the circulatory system; Z82.0 Family history of epilepsy and other diseases of the nervous system

== ENCOUNTER 2017-02-20 22:21 | Emergency (ER) | payer SELFPAY ==
[~2017-02-20] VITALS: Ht 185.4 cm; Wt 86.8 kg
[~2017-02-20 22:21] MED LIST changes: +CETI10TA10 PO; -PARO1TAB27 PO; +ZNT150 PO
[2017-02-20 22:26] VITALS: TEMP 36.7; Ht 185.4 cm; Wt 86.8 kg
[2017-02-20] MEDS ORDERED: RANI150T3 PO (22:41)
[2017-02-20] MEDS ORDERED: EPP3/2 IM (22:41)
--- NOTE | 2017-02-20 22:57 | DIAGNOSTIC IMAGING REPORT ---
LEFT HAND MIN 3 VIEWS ROUTINE CLINICAL HISTORY: Left hand pain. Multiple injuries. COMPARISON: Left hand radiographs February 05, 2016. FINDINGS: Alignment of left hand is anatomic. There is no acute fracture. 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 IMPRESSION: No acute fracture or dislocation of the left hand. Electronically signed by: Rm Kapadia M.D. 02/20/2017 10:56 PM Dictated Date/Time: 02/20/2017 10:54 PM
--- NOTE | 2017-02-20 23:20 | EMERGENCY ROOM VISIT NOTE ---
ED Visit Note First contact with patient: 22:29 CHIEF COMPLAINT: Hand injury HISTORY OF PRESENT ILLNESS: This 47-year-old male patient presented to the emergency department ambulatory complaining of pain in the left hand. The patient states that over the past several weeks, he has had multiple injuries to the hand. 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 He performs several repetitive movements. He states that he has had multiple minor injuries, including bumping the hand off of things. The pain has been intermittent and states that it occasionally gets worse throughout the day with increased movement. He has at times had difficulty making a fist or holding onto items. He rates his current discomfort a 4/10. He states that he saw his primary care provider regarding these symptoms and she ordered an x-ray, but his hand began to feel better and he canceled the x-ray. He denies any previous fractures of this hand. REVIEW OF SYSTEMS: A 6 system review of systems was completed with positives and pertinent negatives in the HPI. ALLERGIES: Erythromycin, Quetiapine MEDICATIONS: Zantac PMH: No significant past medical history. SOCIAL HISTORY: The patient lives locally with family. He is a smoker. PHYSICAL EXAM: Vital Signs: Reviewed Nurse's notes, vital signs stable. GENERAL : This is a 47-year-old male, in no acute distress, but appears to be in pain, well-developed, well-nourished. MUSCULOSKELETAL: There is no deformity of the left hand. There is tenderness over the distal third and fourth metacarpals. There is no thenar or hypothenar eminence atrophy. Normal thumb opposition to all fingers. Clinical Research Assistant strength 5/5. There is no laceration. Capillary refill less than 2 seconds. No tenderness of the fingers or wrist. Full range of motion of the wrist. No snuff box tenderness. Radial pulse 2+. NEURO: Alert and oriented to person, place, and time. Normal sensation to light and sharp touch. RADIOGRAPHIC FINDINGS: LEFT HAND MIN 3 VIEWS ROUTINE CLINICAL HISTORY: Left hand pain. Multiple injuries. COMPARISON: Left hand radiographs February 05, 2016. FINDINGS: Alignment of left hand is anatomic. There is no acute fracture. 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 IMPRESSION: No acute fracture or dislocation of the left hand. EMERGENCY DEPARTMENT COURSE: I examined the patient. An x-ray of the left hand was reviewed by myself and radiology and shows evidence of arthritis but no acute findings. The patient was encouraged to take anti-inflammatories and follow up with the PCP for further evaluation. The patient verbalized understanding of my assessment and treatment plan and was discharged home in good condition. Medication reconciliation: I attest that I have personally reviewed the patient 's current medication list. Blood Pressure Screening: Patient was found to have a slightly elevated blood pressure due to circumstances. I do not believe that the patient requires hypertension monitoring. DIAGNOSIS: Left hand pain Problem List Medical Problems: (1) Anxiety Status: Chronic (2) corneal implants Status: Resolved (3) Depression Status: Chronic Current/Historical Medications Scheduled PRN Epinephrine (Epipen), 0.3 MG IM UD PRN for ALLERGIC REACTION Ranitidine Hcl (Zantac), 150 MG PO BID PRN for Indigestion Allergies Coded Allergies: Erythromycin (Unverified Allergy, Severe, HIVES, FEVER, ITCHY, 02/05/16) Quetiapine (Verified Allergy, Severe, ANAPHYLAXIS, 12/15/16) HYPOXIA Vital Signs Date Time Temp Pulse Resp B/P (MAP) Pulse Ox O2 Delivery O2 Flow Rate FiO2 02/20/17 23:26 84 18 125/88 97 02/20/17 22:26 36.7 85 18 144/86 97 Room Air Departure Information Impression Primary Impression: Left hand pain Dispostion Home / Self-Care Condition GOOD Referrals La Brito D.O. (PCP) Patient Instructions My [facility] Additional Instructions You have been treated in the Emergency Department for Hand Pain. Take Naproxen OTC twice a day for the next 7 days. For pain control, you can use the following [id number] medicines (if >12 yo): - Regular strength (325mg/tab) Tylenol (acetaminophen) 2 tabs every 4-6 hours as needed. Do not exceed 12 tablets in a 24 hour period. Avoid taking more than 4 grams (4000 mg) of Tylenol per day. This includes any other sources of acetaminophen you may take on a regular basis. If this is a recent injury (<24 hrs), ice can be applied to the area of pain for the first 3 days to help decrease pain and inflammation. Follow-up with your primary care provider this week for further evaluation. Return to the Emergency Department if your current symptoms worsen despite treatment course outlined above, or if you develop any of the following symptoms : intractable pain despite aforementioned treatment course or new onset of numbness or tingling of the fingers.
[2017-02-20 23:26] VITALS: BP 125/88; PULSE 84; O2SAT 97
== END 2017-02-20 23:27 | disposition home or self-care (01) ==
LOC: C.EDB 22:23 → C.EDC 23:27
DX: M79.642 Pain in left hand (principal); F41.9 Anxiety disorder, unspecified; F32.9 Major depressive disorder, single episode, unspecified; Z79.899 Other long term (current) drug therapy; F17.200 Nicotine dependence, unspecified, uncomplicated

== ENCOUNTER 2018-12-13 23:48 | Inpatient (IN) ==
[~2018-12-13 23:48] MED LIST changes: -CETI10TA10 PO; +SODIUM CHLORIDE 0.9% 1000ML 1,000 ML IV SCH; -ZNT150 PO
[2018-12-13] MEDS ORDERED: LORazepam 1 MG/2 ML VIAL IV STA (23:59)
[2018-12-14 00:24] LABS: Basophils # (auto) 0.03 K/uL (0-0.2); Basophils % (auto) 0.3 %; Eosinophils # (auto) 0.08 K/uL (0-0.5); Eosinophils % (auto) 0.7 %; Hematocrit (blood only) 41.1 % (42-52); Hemoglobin 13.8 g/dL (14.0-18.0); Immature Granulocytes # (auto) 0.03 K/uL (0.00-0.02); Immature Granulocytes % (auto) 0.3 %; Lymphocytes # (auto) 1.52 K/uL (1.2-3.4); Lymphocytes % (auto) 12.8 %; Mean Corpuscular Hgb Conc 33.6 g/dL (32-36); Mean Corpuscular Volume 86.9 fL (80-100); Mean Platelet Volume 10.6 fL (7.4-10.4); Monocytes # (auto) 1.13 K/uL (0.11-0.59); Monocytes % (auto) 9.5 %; Neutrophils # (auto) 9.08 K/uL (1.4-6.5); Neutrophils % (auto) 76.4 %; Platelet Count 158 K/uL (130-400); RDW Coefficient of Variation 13.5 % (11.5-14.5); RDW Standard Deviation 43.1 fL (36.4-46.3); Red Blood Count 4.73 M/uL (4.7-6.1); White Blood Count 11.87 K/uL (4.8-10.8)
[2018-12-14 00:46] LABS: Alanine Aminotransferase 29 U/L (12-78); Albumin Level 3.5 gm/dl (3.4-5.0); Aspartate Aminotransferase 19 U/L (15-37); BUN Creatinine Ratio 13.7 (10-20); Blood Urea Nitrogen 14 mg/dl (7-18); Calcium 8.6 mg/dl (8.5-10.1); Carbon Dioxide 26 mmol/L (21-32); Chloride 114 mmol/L (98-107); Est GFR (Non-African American) 87.1; Glucose 82 mg/dl (70-99); Potassium 3.8 mmol/L (3.5-5.1); Sodium 145 mmol/L (136-145)
[2018-12-14 00:57] LABS: Alkaline Phosphatase 72 U/L (45-117); Bilirubin,Total 0.5 mg/dl (0.2-1); Creatine Kinase 437 U/L (39-308); Globulin 3.4 gm/dl (2.5-4.0); Total Protein 6.9 gm/dl (6.4-8.2)
[2018-12-14] MEDS ORDERED: OPTIRAY 320 125ml IV PRN (01:48)
[2018-12-14 02:35] LABS: NT Pro B Type Natriuretic Pept 2075 pg/ml (0-450)
[2018-12-14] MEDS ORDERED: POTASSIUM CHLORIDE 20 MEQ TABCR PO STA ×2 (02:43→04:29)
[2018-12-14] MEDS ORDERED: FUROSEMIDE 40 MG/4 ML VIAL IV STA (02:43)
--- NOTE | 2018-12-14 03:07 | History & Physical Report ---
Date of Service December 14, 2018 Assessment & Plan (1) CHF (congestive heart failure): Acute CHF Chest pain, troponin elevation secondary to above Rule out ACS hx WPW syndrome as per records anxiety DSO as per records ongoing tobacco abuse New onset anemia PCU Diuretic Rx Trend troponin Aspirin for CAD prevention until ACS ruled out Attempt to obtain additional history from patient regarding cardiac symptoms once more awake. TTE, Cardio consult RE chest pain, CHF Hold maintenance anxiolytic medications for sedation/confusion Anemia work-up Nicotine patch as needed DVT prophylaxis. Lovenox subcu Full code History of Present Illness Chief Complaint: Chest pain, S OB Primary Care Provider: La Brito DO History obtained from patient and records. Limited history obtained from patient secondary to sedation after Ativan administration at the ER. Medical history significant for WPW syndrome, anxiety, ongoing tobacco abuse. Recent confinement November 2016 for anaphylaxis attributed to Seroquel. Patient seen by Cardiology for troponin elevation. Outpatient EPS referral recommended for history WPW. Patient released from custodial a few days ago after being incarcerated for 2-1/2 months. Late last night, patient roused from sleep by palpitations, heart racing sensation, chest discomfort, S OB as per records. Vagal maneuvers ineffective in terminating palpitations. Patient given NSS, IV Ativan at the ER. Because of sedation, patient currently unable to answer questions clearly regarding chest pain characteristics, cough, fluid retention symptoms. 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 Allergies Allergy/AdvReac Type Severity Reaction Status Date / Time erythromycin base Allergy Severe HIVES, Verified 12/14/18 04:30 FEVER, ITCHY quetiapine Allergy Severe ANAPHYLAXIS Verified 12/14/18 00:19 latex Allergy Mild Rash Verified 12/14/18 04:50 Home Medications Home Medications Medication Instructions Recorded Confirmed Type bupropion HCl [Wellbutrin SR] 100 mg PO BID 12/14/18 12/14/18 History buspirone 10 mg PO TID 12/14/18 12/14/18 History citalopram [Celexa] 20 mg PO DAILY 12/14/18 12/14/18 History mirtazapine [Remeron] 15 mg PO HS 12/14/18 12/14/18 History oxcarbazepine [Trileptal] 150 mg PO BID 12/14/18 12/14/18 History prazosin [Minipress] 1 mg PO DAILY 12/14/18 12/14/18 History Past Med/Surg History Medical History WPW (Rkbqt-Qcputbtxq-Dawct syndrome) Social History Preferred Language: Albanian Communication Ability: Effective 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 Beliefs That Will Affect Care: None Current Living Situation: Alone Other Information That Helps Us Care for You: No Feels Safe at Home: No Is there a partner from a previous relationship who is making you feel unsafe now?: No Any Concerns about Your Family Situation: No Would You Like to Speak to Someone About Your Situation: No Safety Concerns: Feels Safe At This Time Smoking Status: Current every day smoker Hx Alcohol Use: Yes Alcohol type: beer Hx Substance Use: Yes substance use type: former substance user Last Used Substance: Days (ago) Review of Systems Review of Systems: Could not be reliably obtained Physical Exam Physical Exam: GENERAL: Obtunded, no respiratory distress, unkempt SKIN: Pallor , warm HEENT: Pale palpebral conjunctivae, no ptosis, dry buccal mucosa NECK : Supple, no tenderness CHEST : Decreased breath sounds , no tenderness HEART : Tachycardic , no obvious murmurs ABDOMEN: Some distention, nontender RECTAL intact sphincter, dark stool, heme-negative: EXTREMITIES : No LE swelling/tenderness, no other conspicuous deformities noted NEUROLOGIC : Obtunded , no facial asymmetry, gait and stance not assessed Results & Data Vital Signs (Past 12 Hours) Vital Signs Temp Pulse Resp BP Pulse Ox 12/14/18 02:31 96 H 20 109/74 12/14/18 02:30 96 H 21 12/14/18 02:01 96 H 22 122/87 12/14/18 02:00 95 H 22 12/14/18 01:30 97 H 30 H 130/86 90 12/14/18 01:01 96 H 21 105/72 89 L 12/14/18 01:00 96 H 20 89 L 12/14/18 00:31 102 H 27 H 126/78 93 12/14/18 00:30 102 H 25 H 92 12/14/18 00:01 109 H 19 149/84 H 93 12/14/18 00:00 110 H 23 93 12/13/18 23:57 110 H 23 92 12/13/18 23:55 37.0 C 110 H 21 133/80 94 Laboratory Results Laboratory Results WBC 11.87 K/uL (4.8-10.8) H 12/14/18 00:08 RBC 4.73 M/uL (4.7-6.1) 12/14/18 00:08 Hgb 13.8 g/dL (14.0-18.0) L 12/14/18 00:08 Hct 41.1 % (42-52) L 12/14/18 00:08 MCV 86.9 fL (80-100) 12/14/18 00:08 MCH 29.2 pg (25-34) 12/14/18 00:08 MCHC 33.6 g/dL (32-36) 12/14/18 00:08 RDW Std Deviation 43.1 fL (36.4-46.3) 12/14/18 00:08 RDW Coeff of [place] 13.5 % (11.5-14.5) 12/14/18 00:08 Plt Count 158 K/uL (130-400) 12/14/18 00:08 MPV 10.6 fL (7.4-10.4) H 12/14/18 00:08 Immature Gran % (Auto) 0.3 % 12/14/18 00:08 Neut % (Auto) 76.4 % 12/14/18 00:08 Lymph % (Auto) 12.8 % 12/14/18 00:08 [place] % (Auto) 9.5 % 12/14/18 00:08 Eos % (Auto) 0.7 % 12/14/18 00:08 Baso % (Auto) 0.3 % 12/14/18 00:08 Immature Gran # (Auto) 0.03 K/uL (0.00-0.02) H 12/14/18 00:08 Neut # (Auto) 9.08 K/uL (1.4-6.5) H 12/14/18 00:08 Lymph # (Auto) 1.52 K/uL (1.2-3.4) 12/14/18 00:08 [place] # (Auto) 1.13 K/uL (0.11-0.59) H 12/14/18 00:08 Eos # (Auto) 0.08 K/uL (0-0.5) 12/14/18 00:08 Baso # (Auto) 0.03 K/uL (0-0.2) 12/14/18 00:08 POC D-Dimer > 450 ng/mlFEU (0-450) H* 12/14/18 00:17 Sodium 145 mmol/L (136-145) 12/14/18 00:08 Potassium 3.8 mmol/L (3.5-5.1) 12/14/18 00:08 Chloride 114 mmol/L (98-107) H 12/14/18 00:08 Carbon Dioxide 26 mmol/L (21-32) 12/14/18 00:08 Anion Gap 5.0 (3-11) 12/14/18 00:08 BUN 14 mg/dl (7-18) 12/14/18 00:08 Creatinine 1.02 mg/dl (0.6-1.4) 12/14/18 00:08 Est Cr Clr Drug Dosing Not Reportable 12/14/18 00:08 Est GFR ( Amer) 101.0 12/14/18 00:08 Est GFR (Non-Af Amer) 87.1 12/14/18 00:08 BUN/Creatinine Ratio 13.7 (10-20) 12/14/18 00:08 Glucose 82 mg/dl (70-99) 12/14/18 00:08 Calcium 8.6 mg/dl (8.5-10.1) 12/14/18 00:08 Magnesium 2.0 mg/dl (1.8-2.4) 12/14/18 00:08 Total Bilirubin 0.5 mg/dl (0.2-1) 12/14/18 00:08 AST 19 U/L (15-37) 12/14/18 00:08 ALT 29 U/L (12-78) 12/14/18 00:08 Alkaline Phosphatase 72 U/L (45-117) 12/14/18 00:08 Total Creatine Kinase 437 U/L (39-308) H 12/14/18 00:08 POC Troponin I 0.28 ng/ml (0-0.045) H 12/14/18 00:17 NT-Pro-B Natriuret Pep 2075 pg/ml (0-450) H 12/14/18 00:08 Total Protein 6.9 gm/dl (6.4-8.2) 12/14/18 00:08 Albumin 3.5 gm/dl (3.4-5.0) 12/14/18 00:08 Globulin 3.4 gm/dl (2.5-4.0) 12/14/18 00:08 Albumin/Globulin Ratio 1.0 (0.9-2) 12/14/18 00:08 TSH 2.510 uIu/ml (0.300-4.500) 12/14/18 00:[address] chest initial read extensive respiratory artifact, no obvious central/large pulmonary embolism identified. Emphysematous changes most prominent in the lung apices right greater than the left. Air-trapping. Pulmonary vascular congestion. Minimal trace dependent pleural effusion noted on the left measuring 2 to 3 mm in thickness. No pneumothorax no pericardial effusion. EKG as per my interpretation rate 110, sinus tachycardia, inferior infarct, slurred QRS upstroke
[2018-12-14] MEDS ORDERED: ACETAMINOPHEN 325 MG TAB PO PRN (03:10)
[2018-12-14] MEDS ORDERED: NITROGLYCERIN SL 0.4 MG/TAB TAB SL PRN (03:10)
[2018-12-14] MEDS ORDERED: OXYCODONE HCL IR 5 MG TAB (IMMEDIATE RELEASE) PO PRN (03:11)
[2018-12-14] MEDS ORDERED: PROMETHAZINE HCL 12.5 MG in SODIUM CHLORIDE 0.9% 50 ML IV PRN (03:11)
[2018-12-14 03:42] LABS: Reticulocyte % 0.7 % (0.5-2.0); Reticulocytes # 0.03 10^6/uL (0.02-0.10)
[2018-12-14 03:58] LABS: Partial Thromboplastin Time 27.1 Seconds (21.0-31.0)
[2018-12-14 04:14] LABS: Ferritin 79.3 ng/ml (8-388); Troponin I 0.477 ng/ml (0-0.045)
[2018-12-14] MEDS ORDERED: POTASSIUM CHLORIDE / WTR 10 MEQ/100 ML PLCT IV SCH (04:15)
[2018-12-14] MEDS ORDERED: ASPIRIN 325 MG ECTAB PO SCH (04:30)
--- NOTE | 2018-12-14 05:32 | Emergency Department Note ---
History of Present Illness General Chief complaint: Chest Pain Stated complaint: CHEST PAINS History of Present Illness Maximum Pain Intensity: 0 This 48-year-old presents to the ER complaining of chest pain, dyspnea and racing heart Location: Chest Quality: Racing heart Severity: Moderate Duration: All day Timing: All day Context: Patient was concerned and came in Modifying factors: better with nothing; worse with nothing Patient was just released from snf. He has a history of WPW. Patient denies any alcohol or drug use. He does smoke. No prior heart attack or blood clot. Patient states all days felt his heart was racing and short of breath. He had some chest discomfort but none currently. No recent stress test or echo. Patient denies exertional chest pain, abdominal pain, leg pain or swelling, fevers, flulike illness, IV drug abuse. Home Medications Home Medications Medication Instructions Recorded Confirmed Type bupropion HCl [Wellbutrin SR] 100 mg PO BID 12/14/18 12/14/18 History buspirone 10 mg PO TID 12/14/18 12/14/18 History citalopram [Celexa] 20 mg PO DAILY 12/14/18 12/14/18 History mirtazapine [Remeron] 15 mg PO HS 12/14/18 12/14/18 History oxcarbazepine [Trileptal] 150 mg PO BID 12/14/18 12/14/18 History prazosin [Minipress] 1 mg PO DAILY 12/14/18 12/14/18 History Allergies Allergy/AdvReac Type Severity Reaction Status Date / Time erythromycin base Allergy Severe HIVES, Verified 12/14/18 04:30 FEVER, ITCHY quetiapine Allergy Severe ANAPHYLAXIS Verified 12/14/18 00:19 latex Allergy Mild Rash Verified 12/14/18 04:50 Past Med/Surg History Medical History WPW (Djyhl-Fbzdjufpd-Aojax syndrome) Social History Preferred Language: [place]er Communication Ability: Effective 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 Beliefs That Will Affect Care: None Current Living Situation: Alone Other Information That Helps Us Care for You: No Feels Safe at Home: No Is there a partner from a previous relationship who is making you feel unsafe now?: No Any Concerns about Your Family Situation: No Would You Like to Speak to Someone About Your Situation: No Safety Concerns: Feels Safe At This Time Smoking Status: Current every day smoker Hx Alcohol Use: Yes Alcohol type: beer Hx Substance Use: Yes substance use type: former substance user Last Used Substance: Days (ago) Review of Systems All systems reviewed & are unremarkable except as noted in HPI & below Physical Exam Vital Signs Vital Signs - 24 hr 12/13/18 23:55 12/13/18 23:57 12/14/18 00:00 Temperature 37.0 C Temperature Source Oral Sepsis Recent Fever Within 48 Hours No Sepsis Action Taken by Nursing No Action Required Pulse Rate 110 H 110 H 110 H Pulse Rate [Left Apical] Pulse Rate from SpO2 Sensor 110 H 110 H 110 H Pulse Rhythm [Left Apical] Pulse Strength [Left Apical] Respiratory Rate 21 23 23 Respiratory Effort / Characteristics Respiratory Depth Respiratory Pattern Blood Pressure 133/80 Blood Pressure [Left Arm] Blood Pressure Mean 97 Blood Pressure Mean [Left Arm] Blood Pressure Position Lying Blood Pressure Position [Left Arm] Pulse Oximetry 94 92 93 Oxygen Delivery Method Room Air 12/14/18 00:01 12/14/18 00:30 12/14/18 00:31 Temperature Temperature Source Sepsis Recent Fever Within 48 Hours Sepsis Action Taken by Nursing Pulse Rate 109 H 102 H 102 H Pulse Rate [Left Apical] Pulse Rate from SpO2 Sensor 109 H 102 H 102 H Pulse Rhythm [Left Apical] Pulse Strength [Left Apical] Respiratory Rate 19 25 H 27 H Respiratory Effort / Characteristics Respiratory Depth Respiratory Pattern Blood Pressure 149/84 H 126/78 Blood Pressure [Left Arm] Blood Pressure Mean 105 94 Blood Pressure Mean [Left Arm] Blood Pressure Position Blood Pressure Position [Left Arm] Pulse Oximetry 93 92 93 Oxygen Delivery Method 12/14/18 01:00 12/14/18 01:01 12/14/18 01:30 Temperature Temperature Source Sepsis Recent Fever Within 48 Hours Sepsis Action Taken by Nursing Pulse Rate 96 H 96 H 97 H Pulse Rate [Left Apical] Pulse Rate from SpO2 Sensor 96 H 96 H 99 H Pulse Rhythm [Left Apical] Pulse Strength [Left Apical] Respiratory Rate 20 21 30 H Respiratory Effort / Characteristics Respiratory Depth Respiratory Pattern Blood Pressure 105/72 130/86 Blood Pressure [Left Arm] Blood Pressure Mean 83 100 Blood Pressure Mean [Left Arm] Blood Pressure Position Blood Pressure Position [Left Arm] Pulse Oximetry 89 L 89 L 90 Oxygen Delivery Method 12/14/18 02:00 12/14/18 02:01 12/14/18 02:30 Temperature Temperature Source Sepsis Recent Fever Within 48 Hours Sepsis Action Taken by Nursing Pulse Rate 95 H 96 H 96 H Pulse Rate [Left Apical] Pulse Rate from SpO2 Sensor Pulse Rhythm [Left Apical] Pulse Strength [Left Apical] Respiratory Rate 22 22 21 Respiratory Effort / Characteristics Respiratory Depth Respiratory Pattern Blood Pressure 122/87 Blood Pressure [Left Arm] Blood Pressure Mean 98 Blood Pressure Mean [Left Arm] Blood Pressure Position Blood Pressure Position [Left Arm] Pulse Oximetry Oxygen Delivery Method 12/14/18 02:31 12/14/18 02:32 12/14/18 03:00 Temperature Temperature Source Sepsis Recent Fever Within 48 Hours Sepsis Action Taken by Nursing Pulse Rate 96 H 95 H 93 H Pulse Rate [Left Apical] Pulse Rate from SpO2 Sensor Pulse Rhythm [Left Apical] Pulse Strength [Left Apical] Respiratory Rate 20 21 23 Respiratory Effort / Characteristics Respiratory Depth Respiratory Pattern Blood Pressure 109/74 Blood Pressure [Left Arm] Blood Pressure Mean 85 Blood Pressure Mean [Left Arm] Blood Pressure Position Blood Pressure Position [Left Arm] Pulse Oximetry Oxygen Delivery Method 12/14/18 03:01 12/14/18 03:30 12/14/18 03:37 Temperature Temperature Source Sepsis Recent Fever Within 48 Hours Sepsis Action Taken by Nursing Pulse Rate 90 Pulse Rate [Left Apical] Pulse Rate from SpO2 Sensor Pulse Rhythm [Left Apical] Pulse Strength [Left Apical] Respiratory Rate 15 Respiratory Effort / Characteristics Respiratory Depth Respiratory Pattern Blood Pressure 113/59 L 126/82 148/78 H Blood Pressure [Left Arm] Blood Pressure Mean 77 96 101 Blood Pressure Mean [Left Arm] Blood Pressure Position Blood Pressure Position [Left Arm] Pulse Oximetry Oxygen Delivery Method 12/14/18 04:12 Temperature 36.4 C L Temperature Source Oral Sepsis Recent Fever Within 48 Hours Sepsis Action Taken by Nursing Pulse Rate Pulse Rate [Left Apical] 95 H Pulse Rate from SpO2 Sensor Pulse Rhythm [Left Apical] Regular Pulse Strength [Left Apical] Normal Respiratory Rate 20 Respiratory Effort / Characteristics Non-Labored Spontaneous SOB on Exertion Respiratory Depth Normal Respiratory Pattern Regular Blood Pressure Blood Pressure [Left Arm] 129/79 Blood Pressure Mean Blood Pressure Mean [Left Arm] 95 Blood Pressure Position Blood Pressure Position [Left Arm] Sitting Pulse Oximetry 95 Oxygen Delivery Method Room Air VITALS: Vitals are noted on the nurse's note and reviewed by myself. Vital signs tachycardic. GENERAL: Anxious appearing male with pressured speech, in no acute distress, nondiaphoretic, well-developed well-nourished. SKIN: The skin was without rashes, erythema, edema, or bruising. There is no tenting of the skin. Capillary reflex less than 2 seconds. HEAD: Normocephalic atraumatic. EARS: External auditory canals clear, tympanic membranes pearly prater without erythema or effusion bilaterally. EYES: Pupils equal round and reactive to light and accommodation. Conjunctivae without injection, sclerae without icterus. Extraocular movements intact. NOSE: Patent, turbinates without inflammation or discharge. MOUTH: Mucous membranes moist. Pharynx without erythema or exudate. Uvula midline. Airway patent. Tongue does not deviate. NECK: Supple without nuchal rigidity. No lymphadenopathy. No thyromegaly. Cervical spine is nontender. No JVD. HEART: Tachycardic rate and rhythm LUNGS: Clear to auscultation bilaterally without wheezes, rales or rhonchi. No retractions or accessory muscle use. ABDOMEN: Positive bowel sounds x 4. Normal tympanic percussion. Soft, nontender, without masses or organomegaly. Cox sign negative. No guarding or rebound tenderness. No CVA tenderness MUSCULOSKELETAL: No muscle atrophy, erythema, or edema noted. NEURO: Patient was alert and oriented to person place and time. Normal sensation to light and sharp touch. No focal neurological deficits. Course Administered Medications Discontinued Medications Furosemide (Lasix) 40 mg IV NOW STA Stop: 12/14/18 02:44 Last Admin: 12/14/18 03:03 Dose: 40 mg Documented by: [id number] Lorazepam (Ativan) 1 mg in 2 mls @ 2 mls/min IV NOW STA Stop: 12/14/18 00:00 Last Admin: 12/14/18 00:19 Dose: 2 mls/min Documented by: [id number] Sodium Chloride (Nss 1000ml) 1,000 mls @ 999 mls/hr IV .[id number] MIGEL Stop: 12/14/18 00:45 Last Infusion: 12/14/18 01:29 Dose: 0 mls/hr Documented by: [id number] Admin: 12/14/18 00:19 Dose: 999 mls/hr Documented by: [id number] Ioversol (Optiray 320 125ml) 88 ml IV ONCE PRN PRN Reason: Interaction Checking Stop: 12/18/18 01:47 Last Admin: 12/14/18 01:48 Dose: 88 ml Documented by: [id number] Medical Decision Making Medical Records Attestation: I reviewed the patient's medical records. Home Medications Current Medication List: was personally reviewed by me Laboratory Data Attestation: I reviewed the patient's lab results. Result diagrams: 12/14/18 00:08 12/14/18 00:08 Lab Results 12/14/18 12/14/18 12/14/18 Range/Units 00:08 00:08 00:17 WBC 11.87 H (4.8-10.8) K/uL RBC 4.73 (4.7-6.1) M/uL Hgb 13.8 L (14.0-18.0) g/dL Hct 41.1 L (42-52) % MCV 86.9 (80-100) fL MCH 29.2 (25-34) pg MCHC 33.6 (32-36) g/dL RDW Std Deviation 43.1 (36.4-46.3) fL RDW Coeff of [place] 13.5 (11.5-14.5) % Plt Count 158 (130-400) K/uL MPV 10.6 H (7.4-10.4) fL Immature Gran % (Auto) 0.3 % Neut % (Auto) 76.4 % Lymph % (Auto) 12.8 % [place] % (Auto) 9.5 % Eos % (Auto) 0.7 % Baso % (Auto) 0.3 % Reticulocyte % (Auto) (0.5-2.0) % Immature Gran # (Auto) 0.03 H (0.00-0.02) K/uL Neut # (Auto) 9.08 H (1.4-6.5) K/uL Lymph # (Auto) 1.52 (1.2-3.4) K/uL [place] # (Auto) 1.13 H (0.11-0.59) K/uL Eos # (Auto) 0.08 (0-0.5) K/uL Baso # (Auto) 0.03 (0-0.2) K/uL Reticulocyte # (0.02-0.10) 10^6/uL APTT (21.0-31.0) Seconds PTT Ratio POC D-Dimer > 450 H* (0-450) ng/mlFEU Sodium 145 (136-145) mmol/L Potassium 3.8 (3.5-5.1) mmol/L Chloride 114 H (98-107) mmol/L Carbon Dioxide 26 (21-32) mmol/L Anion Gap 5.0 (3-11) BUN 14 (7-18) mg/dl Creatinine 1.02 (0.6-1.4) mg/dl Est Cr Clr Drug Dosing Not Reportable Est GFR ( Amer) 101.0 Est GFR (Non-Af Amer) 87.1 BUN/Creatinine Ratio 13.7 (10-20) Glucose 82 (70-99) mg/dl Lactate (0.4-2.0) mmol/L Calcium 8.6 (8.5-10.1) mg/dl Magnesium 2.0 (1.8-2.4) mg/dl Iron (35-175) mcg/dl TIBC (250-450) mcg/dl Transferrin (200-360) mg/dl Ferritin (8-388) ng/ml Total Bilirubin 0.5 (0.2-1) mg/dl AST 19 (15-37) U/L ALT 29 (12-78) U/L Alkaline Phosphatase 72 (45-117) U/L Total Creatine Kinase 437 H (39-308) U/L POC Troponin I 0.28 H (0-0.045) ng/ml Troponin I (0-0.045) ng/ml NT-Pro-B Natriuret Pep 2075 H (0-450) pg/ml Total Protein 6.9 (6.4-8.2) gm/dl Albumin 3.5 (3.4-5.0) gm/dl Globulin 3.4 (2.5-4.0) gm/dl Albumin/Globulin Ratio 1.0 (0.9-2) Procalcitonin (0-0.5) ng/ml TSH 2.510 (0.300-4.500) uIu/ml Blood Type Antibody Screen 12/14/18 12/14/18 12/14/18 Range/Units 03:17 03:17 03:17 WBC (4.8-10.8) K/uL RBC (4.7-6.1) M/uL Hgb (14.0-18.0) g/dL Hct (42-52) % MCV (80-100) fL MCH (25-34) pg MCHC (32-36) g/dL RDW Std Deviation (36.4-46.3) fL RDW Coeff of [place] (11.5-14.5) % Plt Count (130-400) K/uL MPV (7.4-10.4) fL Immature Gran % (Auto) % Neut % (Auto) % Lymph % (Auto) % [place] % (Auto) % Eos % (Auto) % Baso % (Auto) % Reticulocyte % (Auto) 0.7 (0.5-2.0) % Immature Gran # (Auto) (0.00-0.02) K/uL Neut # (Auto) (1.4-6.5) K/uL Lymph # (Auto) (1.2-3.4) K/uL [place] # (Auto) (0.11-0.59) K/uL Eos # (Auto) (0-0.5) K/uL Baso # (Auto) (0-0.2) K/uL Reticulocyte # 0.03 (0.02-0.10) 10^6/uL APTT 27.1 (21.0-31.0) Seconds PTT Ratio 1.0 POC D-Dimer (0-450) ng/mlFEU Sodium (136-145) mmol/L Potassium (3.5-5.1) mmol/L Chloride (98-107) mmol/L Carbon Dioxide (21-32) mmol/L Anion Gap (3-11) BUN (7-18) mg/dl Creatinine (0.6-1.4) mg/dl Est Cr Clr Drug Dosing Est GFR ( Amer) Est GFR (Non-Af Amer) BUN/Creatinine Ratio (10-20) Glucose (70-99) mg/dl Lactate (0.4-2.0) mmol/L Calcium (8.5-10.1) mg/dl Magnesium (1.8-2.4) mg/dl Iron (35-175) mcg/dl TIBC (250-450) mcg/dl Transferrin (200-360) mg/dl Ferritin (8-388) ng/ml Total Bilirubin (0.2-1) mg/dl AST (15-37) U/L ALT (12-78) U/L Alkaline Phosphatase (45-117) U/L Total Creatine Kinase (39-308) U/L POC Troponin I (0-0.045) ng/ml Troponin I (0-0.045) ng/ml NT-Pro-B Natriuret Pep (0-450) pg/ml Total Protein (6.4-8.2) gm/dl Albumin (3.4-5.0) gm/dl Globulin (2.5-4.0) gm/dl Albumin/Globulin Ratio (0.9-2) Procalcitonin < 0.05 (0-0.5) ng/ml TSH (0.300-4.500) uIu/ml Blood Type Antibody Screen 12/14/18 12/14/18 12/14/18 Range/Units 03:17 03:17 03:37 WBC (4.8-10.8) K/uL RBC (4.7-6.1) M/uL Hgb (14.0-18.0) g/dL Hct (42-52) % MCV (80-100) fL MCH (25-34) pg MCHC (32-36) g/dL RDW Std Deviation (36.4-46.3) fL RDW Coeff of [place] (11.5-14.5) % Plt Count (130-400) K/uL MPV (7.4-10.4) fL Immature Gran % (Auto) % Neut % (Auto) % Lymph % (Auto) % [place] % (Auto) % Eos % (Auto) % Baso % (Auto) % Reticulocyte % (Auto) (0.5-2.0) % Immature Gran # (Auto) (0.00-0.02) K/uL Neut # (Auto) (1.4-6.5) K/uL Lymph # (Auto) (1.2-3.4) K/uL [place] # (Auto) (0.11-0.59) K/uL Eos # (Auto) (0-0.5) K/uL Baso # (Auto) (0-0.2) K/uL Reticulocyte # (0.02-0.10) 10^6/uL APTT (21.0-31.0) Seconds PTT Ratio POC D-Dimer (0-450) ng/mlFEU Sodium (136-145) mmol/L Potassium (3.5-5.1) mmol/L Chloride (98-107) mmol/L Carbon Dioxide (21-32) mmol/L Anion Gap (3-11) BUN (7-18) mg/dl Creatinine (0.6-1.4) mg/dl Est Cr Clr Drug Dosing Est GFR ( Amer) Est GFR (Non-Af Amer) BUN/Creatinine Ratio (10-20) Glucose (70-99) mg/dl Lactate 1.6 (0.4-2.0) mmol/L Calcium (8.5-10.1) mg/dl Magnesium (1.8-2.4) mg/dl Iron 24 L (35-175) mcg/dl TIBC 299 (250-450) mcg/dl Transferrin 220 (200-360) mg/dl Ferritin 79.3 (8-388) ng/ml Total Bilirubin (0.2-1) mg/dl AST (15-37) U/L ALT (12-78) U/L Alkaline Phosphatase (45-117) U/L Total Creatine Kinase (39-308) U/L POC Troponin I (0-0.045) ng/ml Troponin I 0.477 H* (0-0.045) ng/ml NT-Pro-B Natriuret Pep (0-450) pg/ml Total Protein (6.4-8.2) gm/dl Albumin (3.4-5.0) gm/dl Globulin (2.5-4.0) gm/dl Albumin/Globulin Ratio (0.9-2) Procalcitonin (0-0.5) ng/ml TSH (0.300-4.500) uIu/ml Blood Type O Positive Antibody Screen NEGATIVE Imaging Data Attestation: I personally reviewed and interpreted this imaging study as follows: MDM Narrative Prior records/ancillary studies reviewed. Triage Nursing notes reviewed. Additional history obtained from family. The patient's history was concerning for chest pain. Differential diagnosis: Etiologies such as cardiac ischemia, aortic dissection, pulmonary embolism, pneumonia, pneumothorax, musculoskeletal, infections, pericarditis, myocarditis, esophageal rupture, gastrointestinal, as well as others were entertained. Physical examination: As above. ER treatment provided: Ativan, IV fluids On reassessment the patient felt better. Diagnostic interpretation by me: The electrocardiogram was normal sinus, delta wave, T wave inversions in the anterior septal leads, EKG compared to prior EKG. Impression sinus rhythm with WPW with new T wave inversions in the anterior septal leads interpreted by myself. I think arrhythmia is unlikely. There are no findings to suggest Brugada syndrome. Cardiac monitoring in the emergency department reveals no tachycardic or bradycardic dysrhythmia. Hypertrophic cardiomyopathy was considered but there are no clear historical elements pointing toward this. EKG is not suggestive. The QRS voltage is not extremely large and there are no suggestive Q waves. Repeat EKG is unchanged. The labs revealed elevated troponin and d-dimer Imaging studies: CTA CHEST: Extensive respiratory artifact limits detailed evaluation of the distal subsegmental pulmonary artery branches with the majority of the subsegmental pulmonary artery branches nondiagnostic in appearance. Accounting for limitations, there is no obvious central/large pulmonary embolism identified. Emphysematous changes, most prominent in the lung apices, right greater than left. There is diffuse increased ground-glass opacities noted throughout the lungs aside from areas of emphysema with associated air trapping. Additionally, there are subsegmental changes in the dependent posterior lung bases. These findings are suggestive of pulmonary vascular congestion. Subsegmental atelectasis is also a diagnostic consideration. Please correlate clinically. Minimal trace dependent pleural effusion noted on the left measuring only 2-3 mm in thickness on a few slices. No pneumothorax. The thoracic aorta is unremarkable. Cardiac chambers are normal in size. No pericardial effusion is seen. No significant mediastinal or lymphadenopathy identified. No significant osseous or overlying soft tissue abnormality. Radiologist: Jason Soto MD HEART SCORE: Hx: high/mod/low suspicion: 0 ECG: ST depression/nonspecific changes/normal: 1 Age: Greater than 65/45-64/less than 45: 1 Risk factors: (Hypertension, hyperlipidemia, diabetes, coronary disease, tobacco use, cocaine use): 1 Troponin: Greater than 2 times normal limits/1-2 times normal limits/normal: 1 Total: 4 Consultation: A consultation was placed with the hospitalist, Dr. Ordonez. The case was discussed and diagnostics were reviewed. The patient was evaluated in the ER for further treatment. Exam and history seem consistent with chest pain, dyspnea and tachycardia with an elevated troponin. Patient had some mild heart failure on CAT scan. Medicine was consulted. Medicine would like to hold on heparin and will evaluate the patient first. Patient felt better after the Ativan. He had no chest pain while in the ER. First troponin was elevated. CTA was reviewed. Patient is adamant that he does not do drugs. Patient still will not offer a urine. Patient is agreeable treatment plan of admission. Repeat EKG is unchanged. By the evaluation outlined above emergent etiologies such as aortic dissectio n, pulmonary embolism, pneumonia, pneumothorax, infections, gastrointestinal, as well as others were deemed relatively unlikely. The pt informed about the findings as listed above. All questions were answered and pleased with the treatment. Case reviewed with my attending The chart was completed utilizing [employer] voice recognition software. Grammatical errors, random word insertions, pronoun errors, and incomplete sentences are an occassional consequence of this system due to software limitations, ambient noise, and hardware issues. Any formal questions or concerns about the content, text, or information contained within the body of this dictation should be directly addressed to the physician hr administrative assistant for clarification. Impression & Plan Elevated troponin, Chest pain Discharge Plan Visit Data *Final* Discharge Date/Time: 12/14/18 03:45 Chief Complaint: Chest Pain Stated Complaint: CHEST PAINS ED Provider: Peter Bah ED Midlevel Provider: Mariama White Discharge Problem: Elevated troponin, Chest pain Patient Disposition: Admitted As Inpatient Discharge Instructions Interventions: ED Discharge Assessment Last Done: 12/14/18 03:45
--- NOTE | 2018-12-14 06:11 | XRay Report ---
XR chest 1V portable HISTORY: 48 years-old Male cp acute shortness of breath COMPARISON: Chest radiograph 12/14/2016, CTA chest 2019 TECHNIQUE: Portable AP view of the chest FINDINGS: Cardiomediastinal and hilar silhouettes are unchanged. No pneumothorax, pleural effusion or overt pul monary edema. Bilateral interstitial coarsening is noted with patchy bibasilar opacities. Advanced em physema. Linear subsegmental atelectasis/scarring of the right lung base. Degenerative changes of the shoulders and spine. IMPRESSION: 1. Advanced emphysema with interstitial coarsening. 2. Patchy bibasilar opacities suggest atelectasis with pneumonitis also in the differential. The above report was generated using voice recognition software. It may contain grammatical, syntax o r spelling errors. Electronically signed by: Nestor Sahni M.D. 12/14/2018 6:10 AM
[2018-12-14 06:30] LABS: Prothrombin Time 10.5 Seconds (9.0-12.0)
[2018-12-14] MEDS: ASPIRIN 81 MG ECTAB PO SCH (06:40)
--- NOTE | 2018-12-14 07:44 | Hospitalist Progress Note ---
Date of Service December 14, 2018 Assessment & Plan (1) Palpitations: Patient presented with palpitations followed by shortness of breath, chest pain x 1 day. S/P Incarceration x 2.5 months, back home few days ago -Known hx of WPW syndrome -Symptoms could be secondary to SVT with known hx of WPW syndrome. EKG consistent with WPW syndrome -Monitor on Tele monitor (2) SOB (shortness of breath): -Symptoms could be secondary to PSVT as above, Contributing factors: CT scan/CXR-severe bullous emphysema with bronchitis, bibasilar consolidative opacitiesatelectasis or pneumonitis, component of pulmonary edema, no PE -Volume overload due to prolonged SVT possible - S/P IV Lasix 40 mg on admission. Hold off on further diuretics. Echo- Normal EF, no wall motion abnormalities -EKG - consistent with WPW syndrome -Nebs QID added -Monitor (3) Elevated troponin: Troponin - 0.477--> 0.327 Had an episode of chest pain associated with palpitations, SOB -EKG-consistent with Wazyp-Yptunxlhe-Juxnl syndrome -Echo- Normal EF with no wall motion abnormality -Continue with Aspirin 81 mg -Trend troponin, Repeat EKG in AM -Cardiology on board, Appreciate inputs (4) COPD (chronic obstructive pulmonary disease) with emphysema: Patient is a heavy smoker with packs in a day for years. -CT scan/CXR-severe emphysematous bulla with bronchitis, Possible pneumonia -Clinically no cough, wheezing, fever, chills, so doubt it pneumonia -Will give Nebs QID -If no improvement, consider pulmonary consult (5) WPW (Cwgix-Doewibikx-Chtdd syndrome): Known case of WPW. Was supposed to follow up with cardiology, but was lost to follow up (6) History of drug abuse: Prior hx of cocaine abuse years ago Denies any IV Drug abuse No recent use -Says that he took 4-5 tablets of gabapentin for restless leg syndrome (drug not listed in his home medication) -Urine toxicology pending -Will discontinue Oxycodone PRN (7) Tobacco abuse disorder: -Smoking cessation advised (8) Depression: -On bupropion 100 mg twice daily, BuSpar 10 mg 3 times daily, Celexa 20 mg daily, Remeron 15 mg nightly (9) Anxiety: Subjective Patient is still a bit drowsy. More awake than on admission. Denies any shortness of breath, chest pain, palpitations, cough, fever, chills today. No leg swelling. Denies any illegal drug use. Does mention that he took 4 to 5 tablets of gabapentin for his restless leg syndrome. Physical Exam Physical Exam: GENERAL- Awake, oriented x 3, bit drowsy , not in distress NOSE- No nasal discharge noted NECK- Supple, no JVD LUNGS- Air entry bilaterally equal. No rales, rhonchi, crackles, wheezes heard. HEART- Regular rate and rhythm. No murmurs ABDOMEN- Soft, non tender, non distended, Bowel sounds heard. EXTREMITIES- Good peripheral pulses, no edema Results & Data Vital Signs (Past 12 Hours) Vital Signs Temp Pulse Pulse Resp BP BP Pulse Ox 12/14/18 04:18 98 H 12/14/18 04:12 36.4 C L 95 H 20 129/79 95 12/14/18 03:37 148/78 H 12/14/18 03:30 126/82 12/14/18 03:01 90 15 113/59 L 12/14/18 03:00 93 H 23 12/14/18 02:32 95 H 21 12/14/18 02:31 96 H 20 109/74 12/14/18 02:30 96 H 21 12/14/18 02:01 96 H 22 122/87 12/14/18 02:00 95 H 22 12/14/18 01:30 97 H 30 H 130/86 90 12/14/18 01:01 96 H 21 105/72 89 L 12/14/18 01:00 96 H 20 89 L 12/14/18 00:31 102 H 27 H 126/78 93 12/14/18 00:30 102 H 25 H 92 12/14/18 00:01 109 H 19 149/84 H 93 12/14/18 00:00 110 H 23 93 12/13/18 23:57 110 H 23 92 12/13/18 23:55 37.0 C 110 H 21 133/80 94
--- NOTE | 2018-12-14 08:01 | CT Scan Report ---
CT angio chest PE protocol CT DOSE: 665.73 mGy.cm HISTORY: 48 years-old Male with PE. Acute atypical chest pain with shortness of breath TECHNIQUE: Multiple CTA images of the chest were obtained after the intravenous administration of 88 ml Optiray 320. Coronal and sagittal MIPS were obtained from the axial data set and were submitted f or review. All measurements were obtained according to NASCET criteria. A dose lowering technique wa s utilized adhering to the principles of ALARA. COMPARISON: Chest radiograph of same day, chest CT 02/05/2016 FINDINGS: CTA: Heart is upper limits of normal in size. No pericardial effusion. The thoracic aorta is normal in cou rse and caliber without aneurysm or dissection. The imaged great vessels appear to be patent. The pul monary arterial tree is opacified to level of the segmental branches. The signal and subsegmental bra nches are not well seen secondary to respiratory motion. No central pulmonary emboli identified. CT CHEST: No focal thyroid nodule. Scattered mildly prominent subcarinal and hilar lymph nodes without patholog ically enlarged lymph nodes by CT size criteria. There are trace bilateral pleural effusions. No pneu mothorax. Severe bullous emphysema with areas of chronic interstitial scarring. Evaluation of the dean g parenchyma is limited secondary to respiratory motion. Bibasilar groundglass and subsegmental conso lidative opacities are noted. Minimal dependent consolidation of the upper lobes suggest atelectasis/ scarring. There is mild intralobular septal thickening noted about the lung bases. 4 mm solid nodule of the right middle lobe as seen on image 143 series 4, unchanged from 2016 study suggestive of benig n etiology. No new or enlarging pulmonary nodules identified. Bibasilar bronchial wall thickening. Th e central airways appear to be patent. Mild wall thickening about the mid to distal esophagus with small sliding-type hernia. Soft tissues a re unremarkable. Bones appear to be intact. IMPRESSION: 1. Limited evaluation of the pulmonary arterial tree as above. No evidence of central pulmonary embol i or acute aortic pathology. 2. Severe bullous emphysema with bronchitis. 3. Bibasilar groundglass and subsegmental consolidative opacities suggest atelectasis or pneumonitis. 4. Mild bibasilar intralobular septal thickening may reflect a component of pulmonary edema. 5. Trace pleural effusions. 6. Mild wall thickening about the mid to distal esophagus with small hiatal hernia. The above report was generated using voice recognition software. It may contain grammatical, syntax o r spelling errors. Electronically signed by: Nestor Sahni M.D. 12/14/2018 8:00 AM
[2018-12-14] MEDS ORDERED: PATIENT'S HEIGHT AND/OR WEIGHT NEEDED SCH (08:15)
[2018-12-14] MEDS: PRAZOSIN HCL 1 MG CAP PO SCH (08:31)
[2018-12-14] MEDS: BuPROPion SR 100 MG TABCR PO SCH ×2 (08:31→20:10)
[2018-12-14] MEDS: OXcarbazepine 150 MG TABLET PO SCH ×2 (08:31→20:10)
[2018-12-14] MEDS: CITALOPRAM 20 MG TAB PO SCH (08:32)
[2018-12-14 08:43] LABS: Troponin I 0.327 ng/ml (0-0.045)
[2018-12-14] MEDS: ENOXAPARIN INJ 40 MG/0.4 ML SYR SQ SCH (09:56)
--- NOTE | 2018-12-14 11:14 | Cardiology Consultation ---
Date of Consultation December 14, 2018 Assessment & Plan (1) Elevated troponin: The patient had a normal echocardiogram. I doubt ACS. This is most likely a type II elevation due to SVT. (2) CHF (congestive heart failure): Pro natruretic peptide was elevated on admission. The patient could have had congestive heart failure related to prolonged SVT. (3) WPW (Mrbli-Nuzshjojr-Decwn syndrome): The patient's symptoms could certainly have been due to PSVT. He does have Apykp-Ydkiduazw-Smkxu by EKG criteria. When he entered the emergency department however, he was in a normal sinus rhythm. (4) COPD (chronic obstructive pulmonary disease) with emphysema: Abnormal CT and chest x-ray suggesting COPD and emphysema along with a possible pneumonia. Increased vascular markings could suggest CHF which may have been related to prolonged PSVT. The patient was given IV Lasix in the emergency department and now appears comfortable. CT of the chest excluded pulmonary emboli however, imaging was limited. I have ordered an ultrasound of the lower extremities. I also feel the patient would benefit from a pulmonary consult. History of Present Illness Attending Physician: Kelly Ortiz History of Present Illness This is a 48-year-old male patient with a history of Tcges-Glfrudmaf-Prjve. The patient had contact initially and [place] and was scheduled to see electrophysiology but was lost to follow-up. He has been incarcerated the past 2-1/2 months and was only released on . [place]" and yesterday morning when he awoke he felt his heart vibrating and racing. He thought that he was having an episode of SVT due to the WPW. He waited through most of the day and then started become short of breath. He then presented to the emergency department. He was in a normal sinus rhythm with an EKG consis tent with WPW. Inferior infarct pattern is part of the WPW pattern. He had an abnormal chest x-ray and CT of the chest. Review of the report indicates possible increased vascular markings, COPD changes and possible pneumonia. Patient's had no history of fever or productive cough. An echocardiogram completed on admission shows normal LV function and no significant valvular pathology. Allergies Allergy/AdvReac Type Severity Reaction Status Date / Time erythromycin base Allergy Severe HIVES, Verified 12/14/18 04:30 FEVER, ITCHY quetiapine Allergy Severe ANAPHYLAXIS Verified 12/14/18 00:19 latex Allergy Mild Rash Verified 12/14/18 04:50 Home Medications Home Medications Medication Instructions Recorded Confirmed Type bupropion HCl [Wellbutrin SR] 100 mg PO BID 12/14/18 12/14/18 History buspirone 10 mg PO TID 12/14/18 12/14/18 History citalopram [Celexa] 20 mg PO DAILY 12/14/18 12/14/18 History mirtazapine [Remeron] 15 mg PO HS 12/14/18 12/14/18 History oxcarbazepine [Trileptal] 150 mg PO BID 12/14/18 12/14/18 History prazosin [Minipress] 1 mg PO DAILY 12/14/18 12/14/18 History Patient History Medical History WPW (Wzguz-Owzlgsvgt-Qavgj syndrome) Social History Preferred Language: Khmer Communication Ability: Effective 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 Beliefs That Will Affect Care: None Current Living Situation: Alone Other Information That Helps Us Care for You: No Feels Safe at Home: No Is there a partner from a previous relationship who is making you feel unsafe now?: No Any Concerns about Your Family Situation: No Would You Like to Speak to Someone About Your Situation: No Safety Concerns: Feels Safe At This Time Smoking Status: Current every day smoker Hx Alcohol Use: Yes Alcohol type: beer Hx Substance Use: Yes substance use type: former substance user Last Used Substance: Days (ago) Review of Systems Review of Systems: All systems reviewed & are unremarkable except as noted in HPI & below The patient denies illegal drug use since leaving longterm. He has no prior history of lung disease. Physical Exam Physical Exam: General: no acute distress and stated age Head: normocephalic, no masses, lesions, tenderness or abnormalities Eyes: conjunctiva are pink and non-injected, sclera clear Neck: supple, no adenopathy, no bruits, normal jugular venous pulse, no hepatojugular reflux Chest: normal shape and normal respiratory effort Lungs: clear to auscultation and percussion Cardiac Exam: - regular rate & rhythm, no murmurs gallops or rubs - normal S1, normal S2 Pulses: 2(+) throughout Abdomen: abdomen soft, non-tender, no abnormal masses and no hepatosplenomegaly Musculoskeletal: no gait disturbance, no joint inflammation, no deforming arthritis Extremities: no edema and no cyanosis Neuro: grossly normal exam Results & Data Vital Signs (Past 12 Hours) Vital Signs Temp Pulse Pulse Resp BP BP Pulse Ox 12/14/18 11:08 36.6 C 90 20 113/65 93 12/14/18 07:35 91 12/14/18 07:34 36.6 C 92 H 22 112/70 86 L 12/14/18 04:18 98 H 12/14/18 04:12 36.4 C L 95 H 20 129/79 95 12/14/18 03:37 148/78 H 12/14/18 03:30 126/82 12/14/18 03:01 90 15 113/59 L 12/14/18 03:00 93 H 23 12/14/18 02:32 95 H 21 12/14/18 02:31 96 H 20 109/74 12/14/18 02:30 96 H 21 12/14/18 02:01 96 H 22 122/87 12/14/18 02:00 95 H 22 12/14/18 01:30 97 H 30 H 130/86 90 12/14/18 01:01 96 H 21 105/72 89 L 12/14/18 01:00 96 H 20 89 L 12/14/18 00:31 102 H 27 H 126/78 93 12/14/18 00:30 102 H 25 H 92 12/14/18 00:01 109 H 19 149/84 H 93 12/14/18 00:00 110 H 23 93 12/13/18 23:57 110 H 23 92 12/13/18 23:55 37.0 C 110 H 21 133/80 94 Laboratory Results Laboratory Results - last 24 hr 12/14/18 12/14/18 12/14/18 00:08 00:08 00:17 WBC 11.87 H RBC 4.73 Hgb 13.8 L Hct 41.1 L MCV 86.9 MCH 29.2 MCHC 33.6 RDW Std Deviation 43.1 RDW Coeff of [place] 13.5 Plt Count 158 MPV 10.6 H Immature Gran % (Auto) 0.3 Neut % (Auto) 76.4 Lymph % (Auto) 12.8 [place] % (Auto) 9.5 Eos % (Auto) 0.7 Baso % (Auto) 0.3 Reticulocyte % (Auto) Immature Gran # (Auto) 0.03 H Neut # (Auto) 9.08 H Lymph # (Auto) 1.52 [place] # (Auto) 1.13 H Eos # (Auto) 0.08 Baso # (Auto) 0.03 Reticulocyte # PT INR APTT PTT Ratio POC D-Dimer > 450 H* Sodium 145 Potassium 3.8 Chloride 114 H Carbon Dioxide 26 Anion Gap 5.0 BUN 14 Creatinine 1.02 Est Cr Clr Drug Dosing Not Reportable Est GFR ( Amer) 101.0 Est GFR (Non-Af Amer) 87.1 BUN/Creatinine Ratio 13.7 Glucose 82 Lactate Calcium 8.6 Magnesium 2.0 Iron TIBC Transferrin Ferritin Total Bilirubin 0.5 AST 19 ALT 29 Alkaline Phosphatase 72 Total Creatine Kinase 437 H POC Troponin I 0.28 H Troponin I NT-Pro-B Natriuret Pep 2075 H Total Protein 6.9 Albumin 3.5 Globulin 3.4 Albumin/Globulin Ratio 1.0 Lipase Procalcitonin TSH 2.510 Ethyl Alcohol mg/dL Blood Type Antibody Screen 12/14/18 12/14/18 12/14/18 03:17 03:17 03:17 WBC RBC Hgb Hct MCV MCH MCHC RDW Std Deviation RDW Coeff of [place] Plt Count MPV Immature Gran % (Auto) Neut % (Auto) Lymph % (Auto) [place] % (Auto) Eos % (Auto) Baso % (Auto) Reticulocyte % (Auto) 0.7 Immature Gran # (Auto) Neut # (Auto) Lymph # (Auto) [place] # (Auto) Eos # (Auto) Baso # (Auto) Reticulocyte # 0.03 PT INR APTT 27.1 PTT Ratio 1.0 POC D-Dimer Sodium Potassium Chloride Carbon Dioxide Anion Gap BUN Creatinine Est Cr Clr Drug Dosing Est GFR ( Amer) Est GFR (Non-Af Amer) BUN/Creatinine Ratio Glucose Lactate Calcium Magnesium Iron TIBC Transferrin Ferritin Total Bilirubin AST ALT Alkaline Phosphatase Total Creatine Kinase POC Troponin I Troponin I NT-Pro-B Natriuret Pep Total Protein Albumin Globulin Albumin/Globulin Ratio Lipase Procalcitonin < 0.05 TSH Ethyl Alcohol mg/dL Blood Type Antibody Screen 12/14/18 12/14/18 12/14/18 03:17 03:17 03:37 WBC RBC Hgb Hct MCV MCH MCHC RDW Std Deviation RDW Coeff of [place] Plt Count MPV Immature Gran % (Auto) Neut % (Auto) Lymph % (Auto) [place] % (Auto) Eos % (Auto) Baso % (Auto) Reticulocyte % (Auto) Immature Gran # (Auto) Neut # (Auto) Lymph # (Auto) [place] # (Auto) Eos # (Auto) Baso # (Auto) Reticulocyte # PT INR APTT PTT Ratio POC D-Dimer Sodium Potassium Chloride Carbon Dioxide Anion Gap BUN Creatinine Est Cr Clr Drug Dosing Est GFR ( Amer) Est GFR (Non-Af Amer) BUN/Creatinine Ratio Glucose Lactate 1.6 Calcium Magnesium Iron 24 L TIBC 299 Transferrin 220 Ferritin 79.3 Total Bilirubin AST ALT Alkaline Phosphatase Total Creatine Kinase POC Troponin I Troponin I 0.477 H* NT-Pro-B Natriuret Pep Total Protein Albumin Globulin Albumin/Globulin Ratio Lipase Procalcitonin TSH Ethyl Alcohol mg/dL Blood Type O Positive Antibody Screen NEGATIVE 12/14/18 12/14/18 12/14/18 05:13 08:00 08:00 WBC RBC Hgb Hct MCV MCH MCHC RDW Std Deviation RDW Coeff of [place] Plt Count MPV Immature Gran % (Auto) Neut % (Auto) Lymph % (Auto) [place] % (Auto) Eos % (Auto) Baso % (Auto) Reticulocyte % (Auto) Immature Gran # (Auto) Neut # (Auto) Lymph # (Auto) [place] # (Auto) Eos # (Auto) Baso # (Auto) Reticulocyte # PT 10.5 INR 1.0 APTT PTT Ratio POC D-Dimer Sodium Potassium Chloride Carbon Dioxide Anion Gap BUN Creatinine Est Cr Clr Drug Dosing Est GFR ( Amer) Est GFR (Non-Af Amer) BUN/Creatinine Ratio Glucose Lactate Calcium Magnesium Iron TIBC Transferrin Ferritin Total Bilirubin AST ALT Alkaline Phosphatase Total Creatine Kinase POC Troponin I Troponin I 0.327 H* NT-Pro-B Natriuret Pep Total Protein Albumin Globulin Albumin/Globulin Ratio Lipase 56 L Procalcitonin TSH Ethyl Alcohol mg/dL < 3.0 Blood Type Antibody Screen Medications Administered Current Inpatient Medications Acetaminophen (Tylenol) 650 mg PO Q4H PRN PRN Reason: Pain or Fever Stop: 01/13/19 03:09 Aspirin (Ecotrin Ectab) 81 mg PO QAM [facility] Stop: 01/13/19 08:59 Last Admin: 12/14/18 06:40 Dose: 81 mg Documented by: Bupropion HCl (Wellbutrin-Sr) 100 mg PO BID [facility] Stop: 01/13/19 08:59 Last Admin: 12/14/18 08:31 Dose: 100 mg Documented by: Buspirone HCl (Buspar) 10 mg PO TID [facility] Stop: 01/13/19 08:59 Last Admin: 12/14/18 08:32 Dose: 10 mg Documented by: Citalopram Hydrobromide (Celexa) 20 mg PO DAILY [facility] Stop: 01/13/19 08:59 Last Admin: 12/14/18 08:32 Dose: 20 mg Documented by: Enoxaparin Sodium (Lovenox) 40 mg SQ QAM [facility] Stop: 01/13/19 08:59 Last Admin: 12/14/18 09:56 Dose: Not Given Documented by: Promethazine HCl 12.5 mg/ (Sodium Chloride) 50.5 mls @ 202 mls/hr IV Q6H PRN PRN Reason: Nausea And Vomiting Stop: 01/13/19 03:10 Mirtazapine (Remeron) 15 mg PO HS [facility] Stop: 01/13/19 20:59 Nitroglycerin (Nitrostat) 0.4 mg SL UD PRN PRN Reason: Chest Pain Stop: 01/13/19 03:09 Oxcarbazepine (Trileptal) 150 mg PO BID [facility] Stop: 01/13/19 08:59 Last Admin: 12/14/18 08:31 Dose: 150 mg Documented by: Oxycodone HCl (Roxicodone Immediate Rel) 5 mg PO Q4H PRN PRN Reason: Pain Stop: 12/28/18 03:10 Prazosin HCl (Prazosin Hcl) 1 mg PO DAILY [facility] Stop: 01/13/19 08:59 Last Admin: 12/14/18 08:31 Dose: 1 mg Documented by:
[2018-12-14 11:59] LABS: Folate (Folic Acid) 15.51 ng/ml (>5.38)
--- NOTE | 2018-12-14 12:46 | Ultrasound Report ---
BILATERAL LOWER EXTREMITY VENOUS DOPPLER HISTORY: Acute pain and swelling of the bilateral lower legs R/O DVT COMPARISON STUDY: CTA chest of same day FINDINGS: There is normal compressibility, flow, and augmentation within the bilateral lower extremit y deep venous systems. IMPRESSION: No sonographic evidence of deep venous thrombosis within the right or left lower extremity. Electronically signed by: Nestor Sahni M.D. 12/14/2018 12:45 PM
[2018-12-14] MEDS: ALBUTEROL 0.083% NEBU SOLN 3 ML VIAL NEB SCH ×2 (14:39→18:56)
[2018-12-14 15:22] LABS: Appearance Urine Clear (Clear); Bacteria Urine Automated Negative (Negative); Bilirubin Urine Negative (Negative); Blood Urine Trace (Negative); Cast Urine Automated 0 /lpf (0-5); Color Urine Yellow; Epithelial Cell Urine Auto 0-5 /lpf (0-5); Glucose Urine UA Negative (Negative); Ketones Urine Negative (Negative); Leukocyte Esterase Urine Negative (Negative); Nitrite Urine Negative (Negative); Protein Urine Negative (Negative); RBC Urine Automated 0-4 /hpf (0-4); Specific Gravity Urine 1.021 (1.000-1.030); Urobilinogen Urine Negative (Negative); WBC Urine Automated 0 /hpf (0-5)
--- NOTE | 2018-12-14 15:26 | Pulmonary Consultation ---
Date of Consultation December 14, 2018 Assessment & Plan (1) COPD (chronic obstructive pulmonary disease) with emphysema: Impression: 1. Significant COPD by imaging, emphysema type, asymptomatic, gold level cannot be determined based on CT. 2. WPW causing the patient palpitation, cardiology work-up in progress. Plan: 1. Arrange for outpatient pulmonary visit. 2. He will need outpatient pulmonary function test. 3. Based on his gold level, treatment can be started. 4. Medications will affect his heart rate and attention to be paid for short acting beta agonist. 5. He will need genetic testing for alpha 1 antitrypsin. 6. Low-dose CAT scan of the chest ongoing every 2 to 5 years for life. 7. Discussed in details with the patient, he is in agreement. Thank you, will follow as needed inpatient. History of Present Illness Reason for Consultation: Abnormal CAT scan of the chest. Requesting Physician: Dr. Gonzalez Attending Physician: Kelly Ortiz History of Present Illness Dear Dr. Gonzalez, Thank you for the kind referral Mr. Kuo to pulmonary service. 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 The patient has not been treated for WPW and did not require any treatment in the past. The palpitation makes him feel dizzy but he did not have any syncope. No chest pain was reported, he does have dyspnea on exertion but only when he had these episodes. The patient is a heavy caffeine drinker as well as heavy smoker. He denies any illicit drug use. The patient admitted to the hospital and underwent a CAT scan of the chest to rule out PE which did not show any filling defect, he showed in fact significant emphysematous changes. The patient has not been evaluated by pulmonary, never had pulmonary function test, did not have any increased swelling in his lower extremities or increased abdominal girth, no visual disturbances, and denies any rash. Allergies Allergy/AdvReac Type Severity Reaction Status Date / Time erythromycin base Allergy Severe HIVES, Verified 12/14/18 04:30 FEVER, ITCHY quetiapine Allergy Severe ANAPHYLAXIS Verified 12/14/18 00:19 latex Allergy Mild Rash Verified 12/14/18 04:50 Home Medications Home Medications Medication Instructions Recorded Confirmed Type bupropion HCl [Wellbutrin SR] 100 mg PO BID 12/14/18 12/14/18 History buspirone 10 mg PO TID 12/14/18 12/14/18 History citalopram [Celexa] 20 mg PO DAILY 12/14/18 12/14/18 History mirtazapine [Remeron] 15 mg PO HS 12/14/18 12/14/18 History oxcarbazepine [Trileptal] 150 mg PO BID 12/14/18 12/14/18 History prazosin [Minipress] 1 mg PO DAILY 12/14/18 12/14/18 History Patient History Medical History WPW (Zebin-Ttcprqjmy-Atkjl syndrome) Social History Preferred Language: Irish Communication Ability: Effective Case Therapist Required: No Beliefs That Will Affect Care: None Current Living Situation: Alone Other Information That Helps Us Care for You: No Feels Safe at Home: No Is there a partner from a previous relationship who is making you feel unsafe now?: No Any Concerns about Your Family Situation: No Would You Like to Speak to Someone About Your Situation: No Safety Concerns: Feels Safe At This Time Smoking Status: Current every day smoker Hx Alcohol Use: Yes Alcohol type: beer Hx Substance Use: Yes substance use type: former substance user Last Used Substance: Days (ago) Review of Systems Review of Systems: Review of system including 14 systems as above in the first paragraph. Physical Exam Physical Exam: Vital signs are stable, 93% on room air, S1-S2 regular rate and rhythm, no JVD, distant breath sounds bilaterally but clear, no wheezing, abdomen is benign, no edema. Neurologically is intact and no rash. No swelling in his joints. He does have clubbing. Results & Data Vital Signs (Past 12 Hours) Vital Signs Temp Pulse Pulse Resp BP BP Pulse Ox 12/14/18 14:39 86 16 93 12/14/18 11:08 36.6 C 90 20 113/65 93 12/14/18 07:35 91 12/14/18 07:34 36.6 C 92 H 22 112/70 86 L 12/14/18 04:18 98 H 12/14/18 04:12 36.4 C L 95 H 20 129/79 95 12/14/18 03:37 148/78 H 12/14/18 03:30 126/82 Laboratory Results Labs were reviewed which shows slight leukocytosis, BMP is acceptable, elevated d-dimer, troponin slightly positive as well. Diagnostic Findings Imaging of the CAT scan were reviewed with the patient, with the presence of my colleague Srinath Fall PA-C. The patient has significant emphysematous changes with bullous disease affecting the right apex as well as a left apex. No lymphadenopathy or nodularity noted. No filling defect and no PE.
[2018-12-14 15:56] LABS: Amphetamines+Metham, Urine Neg (Neg); Barbiturates, Urine Neg (Neg); Benzodiazepine, Urine Neg (Neg); Cocaine, Urine Neg (Neg); MDMA (Ecstacy), Urine Pos (Neg); Methadone, Urine Neg (Neg); Opiate, Urine Neg (Neg); Phencyclidine, Urine Neg (Neg)
[2018-12-14] MEDS ORDERED: MIRTAZAPINE TAB 15 MG TAB PO SCH (21:00)
[2018-12-15] MEDS: NICOTINE 21 MG/24 HR TDSY TD SCH ×2 (01:51→08:15)
[2018-12-15] MEDS: ALBUTEROL 0.083% NEBU SOLN 3 ML VIAL NEB SCH ×2 (02:17→07:23)
[2018-12-15 06:37] LABS: Basophils # (auto) 0.03 K/uL (0-0.2); Basophils % (auto) 0.5 %; Eosinophils # (auto) 0.32 K/uL (0-0.5); Eosinophils % (auto) 5.1 %; Hematocrit (blood only) 42.9 % (42-52); Hemoglobin 14.2 g/dL (14.0-18.0); Immature Granulocytes # (auto) 0.01 K/uL (0.00-0.02); Immature Granulocytes % (auto) 0.2 %; Lymphocytes # (auto) 1.44 K/uL (1.2-3.4); Mean Corpuscular Hgb Conc 33.1 g/dL (32-36); Mean Corpuscular Volume 87.2 fL (80-100); Mean Platelet Volume 10.4 fL (7.4-10.4); Monocytes # (auto) 0.85 K/uL (0.11-0.59); Monocytes % (auto) 13.6 %; Neutrophils % (auto) 57.6 %; Platelet Count 142 K/uL (130-400); RDW Coefficient of Variation 13.3 % (11.5-14.5); RDW Standard Deviation 42.6 fL (36.4-46.3); Red Blood Count 4.92 M/uL (4.7-6.1); White Blood Count 6.25 K/uL (4.8-10.8)
[2018-12-15 07:17] LABS: BUN Creatinine Ratio 13.4 (10-20); Calcium 8.6 mg/dl (8.5-10.1); Creatinine Clr Calc Pharmacy 122.9 ml/min; Est GFR (African American) 120.8; Est GFR (Non-African American) 104.3; Potassium 3.5 mmol/L (3.5-5.1)
[2018-12-15] MEDS: BuPROPion SR 100 MG TABCR PO SCH (08:15)
[2018-12-15] MEDS: CITALOPRAM 20 MG TAB PO SCH (08:16)
[2018-12-15] MEDS: ENOXAPARIN INJ 40 MG/0.4 ML SYR SQ SCH (08:17)
[2018-12-15] MEDS: ASPIRIN 81 MG ECTAB PO SCH (08:17)
[2018-12-15] MEDS: OXcarbazepine 150 MG TABLET PO SCH (08:17)
[2018-12-15] MEDS: PRAZOSIN HCL 1 MG CAP PO SCH (08:18)
--- NOTE | 2018-12-15 10:33 | Cardiology Progress Note ---
Date of Service December 15, 2018 Assessment & Plan (1) Elevated troponin: The patient had a normal echocardiogram. I doubt ACS. This is most likely a type II elevation due to SVT. (2) CHF (congestive heart failure): Pro natruretic peptide was elevated on admission. The patient could have had congestive heart failure related to prolonged SVT. (3) WPW (Dmvwy-Pekmjwvow-Ckufr syndrome): The patient can be discharged to outpatient follow-up with electrophysiology. (4) COPD (chronic obstructive pulmonary disease) with emphysema: Pulmonary consult appreciated. Subjective The patient had an uneventful night. He has had no significant arrhythmias since admission. Drug tox screen reveals ecstasy. His recreational drug use could have resulted in tachycardia related to his WPW. The tachycardia is a credible reason for type II elevation of his cardiac troponins along with mild heart failure. His echocardiogram showed normal LV function. The pulmonary consult is appreciated as well. Review of Systems Review of Systems: All systems reviewed & are unremarkable except as noted in HPI & below Unchanged Physical Exam Physical Exam: General: no acute distress and stated age Head: normocephalic, no masses, lesions, tenderness or abnormalities Eyes: conjunctiva are pink and non-injected, sclera clear Neck: supple, no adenopathy, no bruits, normal jugular venous pulse, no hepatojugular reflux Chest: normal shape and normal respiratory effort Lungs: clear to auscultation and percussion Cardiac Exam: - regular rate & rhythm, no murmurs gallops or rubs - normal S1, normal S2 Pulses: 2(+) throughout Abdomen: abdomen soft, non-tender, no abnormal masses and no hepatosplenomegaly Musculoskeletal: no gait disturbance, no joint inflammation, no deforming arthritis Extremities: no edema and no cyanosis Neuro: grossly normal exam Results & Data Vital Signs (Past 12 Hours) Vital Signs Temp Pulse Pulse Pulse Resp BP Pulse Ox 12/15/18 08:00 96 H 12/15/18 07:23 98 H 14 95 12/15/18 07:16 36.5 C 90 18 146/90 H 93 12/15/18 03:43 36.6 C 99 H 20 132/71 91 12/15/18 02:18 88 18 95 12/14/18 23:58 60 12/14/18 23:35 36.6 C 84 18 138/77 97 Pulse Ox 12/15/18 08:00 93 12/15/18 07:23 12/15/18 07:16 12/15/18 03:43 12/15/18 02:18 12/14/18 23:58 12/14/18 23:35 Laboratory Results Laboratory Results - last 24 hr 12/14/18 12/14/18 12/14/18 03:17 14:58 14:58 WBC RBC Hgb Hct MCV MCH MCHC RDW Std Deviation RDW Coeff of [place] Plt Count MPV Immature Gran % (Auto) Neut % (Auto) Lymph % (Auto) [place] % (Auto) Eos % (Auto) Baso % (Auto) Immature Gran # (Auto) Neut # (Auto) Lymph # (Auto) [place] # (Auto) Eos # (Auto) Baso # (Auto) Sodium Potassium Chloride Carbon Dioxide Anion Gap BUN Creatinine Est Cr Clr Drug Dosing Est GFR ( Amer) Est GFR (Non-Af Amer) BUN/Creatinine Ratio Glucose Calcium Troponin I Vitamin B12 498 Folate 15.51 Urine Color Yellow Urine Appearance Clear Urine pH 8.0 H Ur Specific [place] 1.021 Urine Protein Negative Urine Glucose (UA) Negative Urine Ketones Negative Urine Blood Trace H Urine Nitrite Negative Urine Bilirubin Negative Urine Urobilinogen Negative Ur Leukocyte Esterase Negative Urine WBC (Auto) 0 Urine RBC (Auto) 0-4 U Hyaline Cast (Auto) 0 U Epithel Cells (Auto) 0-5 Urine Bacteria (Auto) Negative Urine Opiates Screen Neg Ur Methadone, Qual Neg Urine Barbiturates Neg Ur Phencyclidine (PCP) Neg U Amphetamin/Meth Scrn Neg MDMA (Ecstasy) Screen Pos H U Benzodiazepines Scrn Neg Ur Cocaine Metabolite Neg U Marijuana (THC) Screen Neg 12/15/18 12/15/18 12/15/18 06:05 06:05 06:05 WBC 6.25 RBC 4.92 Hgb 14.2 Hct 42.9 MCV 87.2 MCH 28.9 MCHC 33.1 RDW Std Deviation 42.6 RDW Coeff of [place] 13.3 Plt Count 142 MPV 10.4 Immature Gran % (Auto) 0.2 Neut % (Auto) 57.6 Lymph % (Auto) 23.0 [place] % (Auto) 13.6 Eos % (Auto) 5.1 Baso % (Auto) 0.5 Immature Gran # (Auto) 0.01 Neut # (Auto) 3.60 Lymph # (Auto) 1.44 [place] # (Auto) 0.85 H Eos # (Auto) 0.32 Baso # (Auto) 0.03 Sodium 142 Potassium 3.5 Chloride 108 H Carbon Dioxide 29 Anion Gap 5.0 BUN 11 Creatinine 0.84 Est Cr Clr Drug Dosing 122.9 Est GFR ( Amer) 120.8 Est GFR (Non-Af Amer) 104.3 BUN/Creatinine Ratio 13.4 Glucose 81 Calcium 8.6 Troponin I 0.178 H* Vitamin B12 Folate Urine Color Urine Appearance Urine pH Ur Specific [place] Urine Protein Urine Glucose (UA) Urine Ketones Urine Blood Urine Nitrite Urine Bilirubin Urine Urobilinogen Ur Leukocyte Esterase Urine WBC (Auto) Urine RBC (Auto) U Hyaline Cast (Auto) U Epithel Cells (Auto) Urine Bacteria (Auto) Urine Opiates Screen Ur Methadone, Qual Urine Barbiturates Ur Phencyclidine (PCP) U Amphetamin/Meth Scrn MDMA (Ecstasy) Screen U Benzodiazepines Scrn Ur Cocaine Metabolite U Marijuana (THC) Screen Medications Administered Current Inpatient Medications Acetaminophen (Tylenol) 650 mg PO Q4H PRN PRN Reason: Pain or Fever Stop: 01/13/19 03:09 Albuterol (Ventolin 0.083% 2.5mg/3ml) 2.5 mg NEB Q6R [facility] Stop: 01/13/19 13:59 Last Admin: 12/15/18 07:23 Dose: 2.5 mg Documented by: Aspirin (Ecotrin Ectab) 81 mg PO QAM [facility] Stop: 01/13/19 08:59 Last Admin: 12/15/18 08:17 Dose: 81 mg Documented by: Bupropion HCl (Wellbutrin-Sr) 100 mg PO BID [facility] Stop: 01/13/19 08:59 Last Admin: 12/15/18 08:15 Dose: 100 mg Documented by: Buspirone HCl (Buspar) 10 mg PO TID [facility] Stop: 01/13/19 08:59 Last Admin: 12/15/18 08:16 Dose: 10 mg Documented by: Citalopram Hydrobromide (Celexa) 20 mg PO DAILY [facility] Stop: 01/13/19 08:59 Last Admin: 12/15/18 08:16 Dose: 20 mg Documented by: Enoxaparin Sodium (Lovenox) 40 mg SQ QAM [facility] Stop: 01/13/19 08:59 Last Admin: 12/15/18 08:17 Dose: 40 mg Documented by: Promethazine HCl 12.5 mg/ (Sodium Chloride) 50.5 mls @ 202 mls/hr IV Q6H PRN PRN Reason: Nausea And Vomiting Stop: 01/13/19 03:10 Mirtazapine (Remeron) 15 mg PO [facility] Stop: 01/13/19 20:59 Last Admin: 12/14/18 20:10 Dose: 15 mg Documented by: Miscellaneous (Remove Nicoderm Patch) 1 ea N/A [facility] Stop: 01/13/19 20:59 Last Admin: 12/15/18 01:51 Dose: Not Given Documented by: Nicotine (Nicoderm Cq) 21 mg TD [facility] Stop: 01/13/19 20:24 Last Admin: 12/15/18 08:15 Dose: 21 mg Documented by: Nitroglycerin (Nitrostat) 0.4 mg SL UD PRN PRN Reason: Chest Pain Stop: 01/13/19 03:09 Oxcarbazepine (Trileptal) 150 mg PO BID [facility] Stop: 01/13/19 08:59 Last Admin: 12/15/18 08:17 Dose: 150 mg Documented by: Prazosin HCl (Prazosin Hcl) 1 mg PO DAILY [facility] Stop: 01/13/19 08:59 Last Admin: 12/15/18 08:18 Dose: 1 mg Documented by:
--- NOTE | 2018-12-15 10:39 | Hospitalist Progress Note ---
Date of Service December 15, 2018 Assessment & Plan (1) Palpitations: Patient presented with palpitations followed by shortness of breath, chest pain x 1 day. S/P Incarceration x 2.5 months, back home few days ago -Known hx of WPW syndrome -Symptoms could be secondary to SVT with known hx of WPW syndrome and now UA positive for Ecstasy (denying use) . EKG consistent with WPW syndrome -Tele monitor- 4 beats of PVCs overnight, no significant events (2) SOB (shortness of breath): -Symptoms could be secondary to PSVT as above, Contributing factors: CT scan/CXR-severe bullous emphysema with bronchitis, bibasilar consolidative opacitiesatelectasis or pneumonitis, component of pulmonary edema, no PE -Volume overload due to prolonged SVT possible - S/P IV Lasix 40 mg on admission. No indication for further diuretics. Echo- Normal EF, no wall motion abnormalities -EKG - consistent with WPW syndrome -Pulmonary was consulted due to abnormal CT scan s/o significant COPD - Recommends genetic testing with janet 1 antitrypsin (ordered-follow up results), Low dose CT scan q 2-5 years for life. Follow up with PCP. (3) Elevated troponin: Troponin - 0.477--> 0.327 Had an episode of chest pain associated with palpitations, SOB -EKG-consistent with Ibpnl-Eahgpehmn-Dyqsp syndrome -Echo- Normal EF with no wall motion abnormality -Continue with Aspirin 81 mg -Cardiology on board, Appreciate inputs- per them could be type II elevation due to SVT. No further intervention recommended. Follow up with Cardiology outpatient (4) COPD (chronic obstructive pulmonary disease) with emphysema: Patient is a heavy smoker with packs in a day for years. -CT scan/CXR-severe emphysematous bulla with bronchitis, Possible pneumonia -Clinically no cough, wheezing, fever, chills, so doubt it pneumonia -Pulmonary consulted- Recommends genetic testing with janet 1 antitrypsin (ordered-follow up results), Low dose CT scan q 2-5 years for life. Follow up with PCP. (5) WPW (Jxjyi-Cdsojbiky-Kozbz syndrome): Known case of WPW. Was supposed to follow up with cardiology, but was lost to follow up (6) History of drug abuse: Prior hx of cocaine abuse years ago Denies any IV Drug abuse No recent use -Says that he took 4-5 tablets of gabapentin for restless leg syndrome (drug not listed in his home medication) -Urine toxicology -positive for Ecstasy (patient denies use) (7) Tobacco abuse disorder: -Smoking cessation advised (8) Depression: -On bupropion 100 mg twice daily, BuSpar 10 mg 3 times daily, Celexa 20 mg daily, Remeron 15 mg nightly (9) Anxiety: DISPOSITION Okay to discharge home today Cleared for discharge by cardiology Subjective Patient is doing well. AAOX3. Denies any shortness of breath, chest pain, palpitations, cough, fever, chills today. No leg swelling. Denies any illegal drug use, but UA came back positive for Ecstasy. Does mention that he took 4 to 5 tablets of gabapentin for his restless leg syndrome. Tele monitor= 4 beats of PVCs overnight Physical Exam Physical Exam: GENERAL- Awake, oriented x 3, not in distress NOSE- No nasal discharge noted NECK- Supple, no JVD LUNGS- Air entry bilaterally equal. No rales, rhonchi, crackles, wheezes heard. HEART- Regular rate and rhythm. No murmurs ABDOMEN- Soft, non tender, non distended, Bowel sounds heard. EXTREMITIES- Good peripheral pulses, no edema Results & Data Vital Signs (Past 12 Hours) Vital Signs Temp Pulse Pulse Pulse Resp BP Pulse Ox 12/15/18 08:00 96 H 12/15/18 07:23 98 H 14 95 12/15/18 07:16 36.5 C 90 18 146/90 H 93 12/15/18 03:43 36.6 C 99 H 20 132/71 91 12/15/18 02:18 88 18 95 12/14/18 23:58 60 12/14/18 23:35 36.6 C 84 18 138/77 97 Pulse Ox 12/15/18 08:00 93 12/15/18 07:23 12/15/18 07:16 12/15/18 03:43 12/15/18 02:18 12/14/18 23:58 12/14/18 23:35
--- NOTE | 2018-12-15 10:51 | Discharge Summary ---
Date of Service December 15, 2018 Admission HPI Per Admitting Provider History obtained from patient and records. Limited history obtained from patient secondary to sedation after Ativan administration at the ER. Medical history significant for WPW syndrome, anxiety, ongoing tobacco abuse. Recent confinement November 2016 for anaphylaxis attributed to Seroquel. Patient seen by Cardiology for troponin elevation. Outpatient EPS referral recommended for history WPW. Patient released from residential a few days ago after being incarcerated for 2-1/2 months. Late last night, patient roused from sleep by palpitations, heart racing sensation, chest discomfort, S OB as per records. Vagal maneuvers ineffective in terminating palpitations. Patient given NSS, IV Ativan at the ER. Because of sedation, patient currently unable to answer questions clearly regarding chest pain characteristics, cough, fluid retention symptoms. Medical History as above Surgical History : None Family History : Heart disease as per records Personal/Social history : One pack daily as per records, EtOH intake as per records, machine hand as per records Principal Diagnosis 1. Palpitations, possible PSVT 2. COPD, Emphysema 3. Illegal drug use SECONDARY DIAGNOSIS ON DISCHARGE 1.Depression 2.Anxiety 3.Tobacco abuse disorder, heavy smoker Discharge Exam GENERAL- Awake, oriented x 3, not in distress NOSE- No nasal discharge noted NECK- Supple, no JVD LUNGS- Air entry bilaterally equal. No rales, rhonchi, crackles, wheezes heard. HEART- Regular rate and rhythm. No murmurs ABDOMEN- Soft, non tender, non distended, Bowel sounds heard. EXTREMITIES- Good peripheral pulses, no edema Discharge Data Allergies Allergy/AdvReac Type Severity Reaction Status Date / Time erythromycin base Allergy Severe HIVES, Verified 12/14/18 04:30 FEVER, ITCHY quetiapine Allergy Severe ANAPHYLAXIS Verified 12/14/18 00:19 latex Allergy Mild Rash Verified 12/14/18 04:50 Consultations 12/14/18 02:17 ED Decision to Admit Stat 12/14/18 03:10 Consult Cardiology Routine 12/14/18 11:09 Consult Pulmonology Routine Ordered Studies 12/14/18 01:16 CT angio chest PE protocol Stat 12/14/18 11:04 US venous doppler LE Routine Hospital Course (1) Palpitations: Patient presented with palpitations followed by shortness of breath, chest pain x 1 day. S/P Incarceration x 2.5 months, back home few days ago -Known hx of WPW syndrome -Symptoms could be secondary to SVT with known hx of WPW syndrome and now UA positive for Ecstasy (denying use) . EKG consistent with WPW syndrome -Tele monitor- 4 beats of PVCs overnight, no significant events (2) SOB (shortness of breath): -Symptoms could be secondary to PSVT as above, Contributing factors: CT scan/CXR-severe bullous emphysema with bronchitis, bibasilar consolidative opacitiesatelectasis or pneumonitis, component of pulmonary edema, no PE -Volume overload due to prolonged SVT possible - S/P IV Lasix 40 mg on admission. No indication for further diuretics. Echo- Normal EF, no wall motion abnormalities -EKG - consistent with WPW syndrome -Pulmonary was consulted due to abnormal CT scan s/o significant COPD - Recommends genetic testing with janet 1 antitrypsin (ordered-follow up results), Low dose CT scan q 2-5 years for life. Follow up with PCP. (3) Elevated troponin: Troponin - 0.477--> 0.327 Had an episode of chest pain associated with palpitations, SOB -EKG-consistent with Blofm-Gxfvkskjl-Vsfyf syndrome -Echo- Normal EF with no wall motion abnormality -Continue with Aspirin 81 mg -Cardiology on board, Appreciate inputs- per them could be type II elevation due to SVT. No further intervention recommended. Follow up with Cardiology outpatient (4) COPD (chronic obstructive pulmonary disease) with emphysema: Patient is a heavy smoker with packs in a day for years. -CT scan/CXR-severe emphysematous bulla with bronchitis, Possible pneumonia -Clinically no cough, wheezing, fever, chills, so doubt it pneumonia -Pulmonary consulted- Recommends genetic testing with janet 1 antitrypsin (ordered-follow up results), Low dose CT scan q 2-5 years for life. Follow up with PCP. (5) WPW (Eeprv-Gkabxdpgs-Lrkdb syndrome): Known case of WPW. Was supposed to follow up with cardiology, but was lost to follow up (6) History of drug abuse: Prior hx of cocaine abuse years ago Denies any IV Drug abuse No recent use -Says that he took 4-5 tablets of gabapentin for restless leg syndrome (drug not listed in his home medication) -Urine toxicology -positive for Ecstasy (patient denies use) (7) Tobacco abuse disorder: -Smoking cessation advised (8) Depression: -On bupropion 100 mg twice daily, BuSpar 10 mg 3 times daily, Celexa 20 mg daily, Remeron 15 mg nightly (9) Anxiety: DISPOSITION Okay to discharge home today Cleared for discharge by cardiology Total Time Total Time Spent Total Time Spent (In Minutes): 35 minutes Discharge Plan Discharge Items Patient Disposition: Home - Self-Care Reason For Visit: CHF Discharge Diagnosis: Palpitations likely secondary to SVT Ecstasy positive in urine Discharge Goals: Improve disease control Activity: Resume your previous activity Non-emergency contact: Primary Care Provider Call non-emergency contact if: your symptoms worsen Follow-up/Referrals: Antonino Balderrama DO [Physician] - 12/17/18 1:05 pm Diet: Low Sodium (2gm) Addtl Provider Instructions: MEDICATION CHANGES: 1. Albuterol 2 puffs every 4-6 hours as needed for wheezing QUIT 1. Smoking 2. No illicit drug use FOLLOW UP 1. 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 Call to make an appointment for follow up 2. Pulmonary follow up recommended Prescriptions: New albuterol sulfate 90 mcg/actuation HFA aerosol inhaler 1 inha INH Q6H PRN (Reason: shortness of breath or wheezing) Qty: 18 RF: 0 Continued bupropion HCl [Wellbutrin SR] 100 mg Tablet Sustained-Release 12 Hr 100 mg PO BID RF: 0 mirtazapine [Remeron] 15 mg Tablet 15 mg PO HS RF: 0 oxcarbazepine [Trileptal] 150 mg Tablet 150 mg PO BID RF: 0 buspirone 10 mg Tablet 10 mg PO TID RF: 0 citalopram [Celexa] 20 mg Tablet 20 mg PO DAILY RF: 0 prazosin [Minipress] 1 mg Capsule 1 mg PO DAILY RF: 0 Stand-Alone Forms: Call Back Authorization, [facility]/Other Patient Handouts: COPD, COPD Inhalers, ED Smoking Cessation Discharge Orders: Discharge Order (Routine); Ordered 12/15/18 Ordered By: Kelly Ortiz Admission Data Admit Date/Time: 12/14/18 03:09 Attending Provider: Kelly Ortiz Admit Provider: Jw Ordonez Primary Care Provider: La Brito Other Providers: Michael Treviño ; Gavin Barber ; Scotty Marvin ; Vic Sloan ; Nasir Gonzalez ; Jose Lopes ; Dilcia Rendon ; Aubree Willams ; Jw Ordonez ; Jw King Service: Telemetry
[2018-12-15] MEDS ORDERED: ALBUTEROL 0.083% NEBU SOLN 3 ML VIAL NEB PRN (11:14)
== END 2018-12-15 12:44 | disposition home or self-care (01) | DRG 309 ==
LOC: ED 23:48 → 2S 12-14 03:09